=== PATIENT | male | born 1970 | race Caucasian/White ===

== ENCOUNTER 2024-07-24 21:19 | Inpatient (IN) ==
--- NOTE | 2024-07-24 21:48 | Emergency Department Note ---
Impression & Plan SOB (shortness of breath), Pneumonia, Flu-like symptoms, Leukocytosis, Lung mass ED Provider Note NAME: RHETT ENRIQUE AGE: 54 SEX: M : 1970 ARRIVES VIA: Walk-In INFORMANT: [Patient] ED PROVIDER(S): [Rhett Pak MD] CHIEF COMPLAINT: Short of breath HISTORY OF PRESENT ILLNESS: The patient is a 54-year-old male presents to the ER with around 2 weeks of symptoms. He has had a dry cough that now is a wet cough. He thought he was better for a short time but now seems to be getting worse. He has felt tightness across the chest. He has noticed increasing dyspnea. He has been trying some rdnr-[id number]-[id number] cold meds. He has tried Mucinex and Advil without relief. The patient does not think he has had a fever, no chills. He does smoke but has never been diagnosed with lung disease. He states that his daughter was just diagnosed with influenza. The patient has had some loose, diarrhea-like stools but he thinks it is from the Mucinex. PMHx/PSHx/Social Hx: See Below PHYSICAL EXAM: GENERAL: Patient is in no acute distress. HEENT: No acute trauma, normocephalic atraumatic, mucous membranes moist, no nasal congestion. NECK: No stridor, no adenopathy, no meningismus, trachea is midline. LUNGS: Wet cough noted, no respiratory distress, diminished breath sounds bilaterally with some scattered crackles and some scattered wheezing. HEART: Without murmurs gallops or rubs, regular rate and rhythm. ABDOMEN: Soft, nontender, no peritonitis. EXTREMITIES: No cyanosis, full range of motion of all the joints without pain or difficulty. NEUROLOGIC: Oriented x 3, no acute motor or sensory deficits, no focal weakness. SKIN: No jaundice, no diaphoresis. DIFFERENTIAL DIAGNOSIS: Bronchitis or pneumonia, influenza, COVID-19, CHF, viral illness, cardiac ischemia, among others. EMERGENCY DEPARTMENT PROCEDURES: MEDICAL DECISION MAKING: There is a significant leukocytosis at 19,000, this would be consistent with infection. A very mild anemia was seen. Platelet count was high at 631. No coagulopathy. No renal failure or significant electrolyte abnormality. No concerning liver enzyme elevation. ECG showed a normal sinus rhythm, no ischemia. Cardiac enzyme testing x 1 was not consistent with acute cardiac injury. Respiratory bio fire was negative. Chest x-ray shows a left upper lung mass/pneumonia. There was infiltrate in the right upper lung as well. Chest CT shows pneumonia as well as a potential lung malignancy. No PE. Patient was given a DuoNeb, he was given oral Zithromax and IV ceftriaxone. He was given IV Solu-Medrol and IV saline. He received albuterol via MDI. The patient presents with shortness of breath, flulike symptoms and chest tightness. He was found to have pneumonia as well as what appears to be a new lung mass. He has a significant leukocytosis. Given his findings and complaints, hospitalization, further pulmonary workup was felt warranted. I spoke with the patient and case management. The on-call hospitalist was consulted. Prior/Outside records/notes reviewed: None ECG per my interpretation: Indication was chest pain and dyspnea. The ECG shows a normal sinus rhythm with a rate of 88. There is no acute ST elevation, no PVCs. There is some baseline artifact. The QTc is 423. Continuous Cardiac Monitoring per my interpretation: An order was placed for continuous cardiac monitoring. The monitor shows a rate of 92 with normal sinus rhythm. Imaging/x-ray results per my interpretation: Chest x-ray shows a left upper lung mass/pneumonia. No pneumothorax. There was patchy infiltrate noted to the right upper lung as well. Chronic Medical/Social conditions affecting care: History of smoking Care/Management discussed with: Case management, the on-call hospitalist. Level of care consideration(s): After review of the information above and other included data: --I believe the patient requires escalation of care to admission DISPOSITION: Admission Past Med/Surg History Problem List (Updated 07/24/24 @ 23:49 by Rhett Pak MD) Lung mass (Acute) Leukocytosis (Acute) Flu-like symptoms (Acute) Pneumonia (Acute) SOB (shortness of breath) (Acute) Medical History Bronchitis Social History Smoking Status: Current every day smoker Preferred Language: [place] Feels Safe at Home: Yes Allergies Allergies Allergy/AdvReac Type Severity Reaction Status Date / Time Bactrim Allergy . Unverified 12/21/09 21:32 Sulfa (Sulfonamide Allergy Verified 12/21/09 21:32 Antibiotics) Home Meds Previous Rx's Medication Instructions Recorded OXYCODONE/ACETAMINOPHEN 5MG/325MG 1 tab PO Q6HR PRN ##20 12/21/09 (PERCOCET 5MG/325MG) Results & Data (ED) Vital Signs Vital Signs - 24 hr 07/24/24 21:22 07/24/24 21:30 07/24/24 21:33 Temperature 37.5 C Temperature Source Temporal Artery Scan Pulse Rate 100 H 92 H Pulse Rate [Right Finger] Respiratory Rate 20 Blood Pressure 128/72 Blood Pressure [Right Arm] Blood Pressure Mean 90 Blood Pressure Mean [Right Arm] Pulse Oximetry 97 99 Oxygen Delivery Method Room Air Room Air Oxygen Flow Rate Sepsis Recent Fever Within 48 Hours No Sepsis New/Unexplained Change in Mental Status No Sepsis Action Taken by Nursing No Action Required 07/24/24 22:26 07/24/24 23:10 Temperature Temperature Source Pulse Rate Pulse Rate [Right Finger] 79 Respiratory Rate 15 Blood Pressure Blood Pressure [Right Arm] 133/71 Blood Pressure Mean Blood Pressure Mean [Right Arm] 91 Pulse Oximetry 99 Oxygen Delivery Method Non-rebreather Room Air Oxygen Flow Rate 96 Sepsis Recent Fever Within 48 Hours Sepsis New/Unexplained Change in Mental Status Sepsis Action Taken by [place] Medications Current Medication List: was personally reviewed by me Laboratory Data Attestation: I reviewed the patient's lab results. 07/24/24 21:45 07/24/24 21:45 Lab Results 07/24/24 07/24/24 Range/Units 21:45 Unknown WBC 19.58 H (4.8-10.8) K/ul RBC 4.53 L (4.70-6.10) M/uL Hgb 13.4 L (14.0-18.0) g/dl Hct 39.3 L (42.0-52.0) % MCV 86.8 (80.0-100.0) fL MCH 29.6 (25.0-34.0) pg MCHC 34.1 (32.0-36.0) g/dL RDW Std Deviation 40.4 (36.4-46.3) fL RDW Coeff of Carin 12.8 (11.5-14.5) % Plt Count 631 H (130-400) K/uL MPV 9.4 (9.4-12.4) fL Immature Gran % (Auto) 0.8 % Neut % (Auto) 83.8 % Lymph % (Auto) 8.1 % [place] % (Auto) 6.0 % Eos % (Auto) 0.9 % Baso % (Auto) 0.4 % Neut # (Auto) 16.43 H (1.40-6.50) K/uL Lymph # (Auto) 1.58 (1.20-3.40) K/uL [place] # (Auto) 1.17 H (0.11-0.59) K/uL Eos # (Auto) 0.17 (0.00-0.50) K/uL Baso # (Auto) 0.07 (0.00-0.20) K/uL Immature Gran # (Auto) 0.16 (0.01-0.20) K/uL PT 10.9 (9.0-12.0) Seconds INR 1.0 (0.9-1.1) APTT 28 (21-31) Seconds PTT Ratio 1.0 Sodium 136 (136-145) mmol/L Potassium 3.5 (3.5-5.1) mmol/L Chloride 104 (98-107) mmol/L Carbon Dioxide 24 (21-32) mmol/L Anion Gap 8 (3-11) BUN 15 (6-23) mg/dl Creatinine 1.05 (0.6-1.4) mg/dl Est Cr Clr Drug Dosing 78.7 ml/min eGFR 84.88 BUN/Creatinine Ratio 14.3 (10-20) Glucose 117 H (70-99(Fasting)) mg/dl Calcium 8.8 (8.6-10.3) mg/dl Magnesium 1.8 (1.7-2.4) mg/dl Total Bilirubin 0.3 (0.2-1.0) mg/dl AST 31 (13-39) U/L ALT 33 (7-52) U/L Alkaline Phosphatase 91 (34-104) U/L Troponin I High Sens 7.0 (0-20) pg/ml Total Protein 7.3 (6.0-8.3) gm/dl Albumin 3.3 L (3.4-5.0) gm/dl Globulin 4.0 (2.5-4.0) gm/dl Albumin/Globulin Ratio 0.8 L (0.9-2) Adenovirus (PCR) Not Detected (NotDetected) B. pertussis DNA (PCR) Not Detected (NotDetected) B.parapertussis DNA PCR Not Detected (NotDetected) C. pneumoniae DNA (PCR) Not Detected (NotDetected) Coronavirus OC43 (PCR) Not Detected (NotDetected) Coronavirus HKU1 (PCR) Not Detected (NotDetected) Coronavirus 229E (PCR) Not Detected (NotDetected) SARS-CoV-2 (PCR) Not Detected (NotDetected) Coronavirus NL63 (PCR) Not Detected (NotDetected) Human Metapneumovir PCR Not Detected (NotDetected) Influenza Type A (PCR) Not Detected (NotDetected) Influenza Type B (PCR) Not Detected (NotDetected) M. pneumoniae (PCR) Not Detected (NotDetected) Parainfluenza 1 (PCR) Not Detected (NotDetected) Parainfluenza 2 (PCR) Not Detected (NotDetected) Parainfluenza 3 (PCR) Not Detected (NotDetected) Parainfluenza 4 (PCR) Not Detected (NotDetected) RSV (PCR) Not Detected (NotDetected) Entero/Rhino (PCR) Not Detected (NotDetected) Administered Medications Discontinued Medications Albuterol (Albut/Ipratrop 3mg/0.5mg Neb 3 Ml Vial) 3 ml NEB NOW STA; Protocol Stop: 07/24/24 21:45 Last Admin: 07/24/24 22:23 Dose: 3 ml Documented By: VIKI Albuterol (Albuterol Hfa 8 Gm Inhaler) 3 puffs INH NOW ONE Stop: 07/24/24 23:06 Last Admin: 07/24/24 23:34 Dose: 3 puffs Documented By: RAFAEL Azithromycin (Azithromycin 250 Mg Tab) 500 mg PO NOW ONE Stop: 07/24/24 22:21 Last Admin: 07/24/24 22:30 Dose: 500 mg Documented By: VIKI Ceftriaxone Sodium (Rocephin) 2,000 mg in 50 mls @ 100 mls/hr IV NOW STA Stop: 07/24/24 22:49 Last Infusion: 07/24/24 23:35 Dose: Infused Documented By: Admin: 07/24/24 22:30 Dose: 100 mls/hr Documented By: VIKI Sodium Chloride (Nss) 1,000 mls @ 999 mls/hr IV .Q1H1M ONE Stop: 07/24/24 23:20 Last Infusion: 07/24/24 23:35 Dose: Infused Documented By: Admin: 07/24/24 22:22 Dose: 999 mls/hr Documented By: CHARLEENW Ioversol (Optiray 320 125ml) 120 ml IV ONCE ONE Stop: 07/24/24 22:49 Last Admin: 07/24/24 22:49 Dose: 120 ml Documented By: CHRISSY Methylprednisolone (Methylprednisolone 125 Mg/2 Ml Vial) 80 mg IV NOW STA Stop: 07/24/24 21:45 Last Admin: 07/24/24 22:23 Dose: 80 mg Documented By: ASW Imaging Data Radiologist's Impression: Chest X-Ray 07/24/24 21:30 Exam(s): XR CXR 1 VIEW EXAM: XR Chest, 1 View CLINICAL HISTORY: Reason for exam: Dyspnea. TECHNIQUE: Frontal view of the chest. COMPARISON: Chest x-ray 07/09/2023 FINDINGS: Lungs: Left upper lobe mass measuring 8.4 cm. Heterogeneous opacities in the right upper lobe. Pleural space: No pleural effusion. No pneumothorax. Heart: Unremarkable. No cardiomegaly. IMPRESSION: 1. Left upper lobe mass measuring 8.4 cm. 2. Heterogeneous opacities in the right upper lobe. Electronically signed by: Gilmra Lee MD 07/24/24 23:21 PM Chest CTA 07/24/24 22:19 Exam(s): CTA CHEST EXAM: CT Angiography Chest With Intravenous Contrast CLINICAL HISTORY: Reason for exam: PE. TECHNIQUE: Axial computed tomographic angiography images of the chest with intravenous contrast. CTDI is 18 mGy and DLP is 618 mGy-cm. Automated exposure control was utilized for the study. A dose lowering technique was utilized adhering to the principles of ALARA. MIP reconstructed images were created and reviewed. COMPARISON: No relevant prior studies available. FINDINGS: Pulmonary arteries: No pulmonary embolism. Aorta: No acute findings. Normal caliber. No dissection. Lungs: Mass in the left upper lobe measuring 7.2 x 5.8 cm. Scattered groundglass opacities most pronounced in the upper lobes consistent with atypical infection. Pleural space: No pleural effusion. No pneumothorax. Heart: Unremarkable. Bones/joints: No acute fracture. Soft tissues: Unremarkable. Lymph nodes: Unremarkable. IMPRESSION: 1. No pulmonary embolism. 2. Mass in the left upper lobe measuring 7.2 x 5.8 cm. A few foci of gas along the superior margin. Concerning for centrally necrotic malignancy. 3. Scattered groundglass opacities most pronounced in the upper lobes consistent with atypical infection. Electronically signed by: Gilmar Lee MD 07/24/24 23:14 PM Discharge Plan Visit Data Chief Complaint: Shortness of Breath/Dyspnea Stated Complaint: COUGHING, SOB, CHEST PAIN, ED Provider: Rhett Pak Discharge Problem: SOB (shortness of breath), Pneumonia, Flu-like symptoms, Leukocytosis, Lung mass Patient Disposition: Admitted As Inpatient Condition: Fair Forms Stand Alone Forms: [employer] Prescriptions Prescriptions: No Action OXYCODONE/ACETAMINOPHEN 5MG/325MG (PERCOCET 5MG/325MG) tablet 1 tab PO Q6HR PRN Qty: 20 0RF Referrals Referrals: Albert Best MD [Primary Care Provider] - Discharge Problem: Pneumonia Qualifiers: Pneumonia type: due to unspecified organism Laterality: left Lung location: u pper lobe of lung Qualified Code(s): J18.9 - Pneumonia, unspecified organism Leukocytosis Qualifiers: Leukocytosis type: unspecified Qualified Code(s): D72.829 - Elevated white blood cell count, unspecified
[2024-07-24 22:11] LABS: Basophils # (auto) 0.07 K/uL (0.00-0.20); Basophils % (auto) 0.4 %; Eosinophils # (auto) 0.17 K/uL (0.00-0.50); Eosinophils % (auto) 0.9 %; Hematocrit (blood only) 39.3 % (42.0-52.0); Hemoglobin 13.4 g/dl (14.0-18.0); Immature Granulocytes # (auto) 0.16 K/uL (0.01-0.20); Immature Granulocytes % (auto) 0.8 %; Lymphocytes # (auto) 1.58 K/uL (1.20-3.40); Lymphocytes % (auto) 8.1 %; Mean Corpuscular Hemoglobin 29.6 pg (25.0-34.0); Mean Corpuscular Hgb Conc 34.1 g/dL (32.0-36.0); Mean Corpuscular Volume 86.8 fL (80.0-100.0); Mean Platelet Volume 9.4 fL (9.4-12.4); Monocytes # (auto) 1.17 K/uL (0.11-0.59); Neutrophils # (auto) 16.43 K/uL (1.40-6.50); Neutrophils % (auto) 83.8 %; Platelet Count 631 K/uL (130-400); RDW Coefficient of Variation 12.8 % (11.5-14.5); RDW Standard Deviation 40.4 fL (36.4-46.3); Red Blood Count 4.53 M/uL (4.70-6.10); White Blood Count 19.58 K/ul (4.8-10.8)
[2024-07-24] MEDS: SODIUM CHLORIDE 0.9% 1,000 ML IV ONE (22:22)
[2024-07-24] MEDS: ALBUT/IPRATROP 3MG/0.5MG NEB 3 ML VIAL NEB STA (22:23)
[2024-07-24] MEDS: methylPREDNISolone 125 MG/2 ML VIAL IV STA (22:23)
[2024-07-24 22:26] LABS: Albumin Globulin Ratio 0.8 (0.9-2); Albumin Level 3.3 gm/dl (3.4-5.0); BUN Creatinine Ratio 14.3 (10-20); Bilirubin,Total 0.3 mg/dl (0.2-1.0); Calcium 8.8 mg/dl (8.6-10.3); Creatinine Clr Calc Pharmacy 78.7 ml/min; Magnesium 1.8 mg/dl (1.7-2.4); Potassium 3.5 mmol/L (3.5-5.1); Total Protein 7.3 gm/dl (6.0-8.3)
[2024-07-24] MEDS: cefTRIAXone SODIUM 2,000 MG/50 ML BAG IV STA (22:30)
[2024-07-24] MEDS: AZITHROMYCIN 250 MG TAB PO ONE (22:30)
[2024-07-24 22:38] LABS: Partial Thromboplastin Time 28 Seconds (21-31); Prothrombin Time 10.9 Seconds (9.0-12.0)
[2024-07-24 22:42] LABS: Adenovirus PCR Not Detected (NotDetected); Bordetella parapertussis PCR Not Detected (NotDetected); Bordetella pertussis PCR Not Detected (NotDetected); Chlamydia pneumoniae PCR Not Detected (NotDetected); Coronavirus 229E PCR Not Detected (NotDetected); Coronavirus CoV-2 (COVID19)PCR Not Detected (NotDetected); Coronavirus HKU1 PCR Not Detected (NotDetected); Coronavirus NL63 PCR Not Detected (NotDetected); Coronavirus OC43PCR Not Detected (NotDetected); Human Metapneumovirus PCR Not Detected (NotDetected); Influenza A PCR Not Detected (NotDetected); Influenza B PCR Not Detected (NotDetected); Mycoplasma pneumoniae PCR Not Detected (NotDetected); Parainfluenza Virus 1 PCR Not Detected (NotDetected); Parainfluenza Virus 2 PCR Not Detected (NotDetected); Parainfluenza Virus 3 PCR Not Detected (NotDetected); Parainfluenza Virus 4 PCR Not Detected (NotDetected); Respiratory Syncytial VirusPCR Not Detected (NotDetected); Rhinovirus/Enterovirus PCR Not Detected (NotDetected)
[2024-07-24] MEDS: OPTIRAY 320 125ml IV ONE (22:49)
--- NOTE | 2024-07-24 23:15 | CT Scan Report ---
Exam(s): CTA CHEST EXAM: CT Angiography Chest With Intravenous Contrast CLINICAL HISTORY: Reason for exam: PE. TECHNIQUE: Axial computed tomographic angiography images of the chest with intravenous contrast. CTDI is 18 mGy and DLP is 618 mGy-cm. Automated exposure control was utilized for the study. A dose lowering technique was utilized adhering to the principles of ALARA. MIP reconstructed images were created and reviewed. COMPARISON: No relevant prior studies available. FINDINGS: Pulmonary arteries: No pulmonary embolism. Aorta: No acute findings. Normal caliber. No dissection. Lungs: Mass in the left upper lobe measuring 7.2 x 5.8 cm. Scattered groundglass opacities most pronounced in the upper lobes consistent with atypical infection. Pleural space: No pleural effusion. No pneumothorax. Heart: Unremarkable. Bones/joints: No acute fracture. Soft tissues: Unremarkable. Lymph nodes: Unremarkable. IMPRESSION: 1. No pulmonary embolism. 2. Mass in the left upper lobe measuring 7.2 x 5.8 cm. A few foci of gas along the superior margin. Concerning for centrally necrotic malignancy. 3. Scattered groundglass opacities most pronounced in the upper lobes consistent with atypical infection. Electronically signed by: Gilmar Lee MD 07/24/24 23:14 PM
--- NOTE | 2024-07-24 23:22 | XRay Report ---
Exam(s): XR CXR 1 VIEW EXAM: XR Chest, 1 View CLINICAL HISTORY: Reason for exam: Dyspnea. TECHNIQUE: Frontal view of the chest. COMPARISON: Chest x-ray 07/09/2023 FINDINGS: Lungs: Left upper lobe mass measuring 8.4 cm. Heterogeneous opacities in the right upper lobe. Pleural space: No pleural effusion. No pneumothorax. Heart: Unremarkable. No cardiomegaly. IMPRESSION: 1. Left upper lobe mass measuring 8.4 cm. 2. Heterogeneous opacities in the right upper lobe. Electronically signed by: Gilmar Lee MD 07/24/24 23:21 PM
[2024-07-24] MEDS: ALBUTEROL HFA 8 GM INHALER INH ONE (23:34)
--- NOTE | 2024-07-25 00:37 | History & Physical Report ---
Date of Service July 25, 2024 Assessment & Plan (1) Pneumonia: Plan: 54-year-old male with ongoing tobacco abuse presents with cough and shortness of breath going on since [place] time. Patient says he is coughing a lot and last few days is mostly in the bed. Sometimes wakes up with sweating. Denies any fevers. And was having chest tightness. And today was getting short of breath. Denies any body ache. Denies any weakness. No headache. No neck p ain. No back pain. No pain in the legs. No nausea. Appetite is okay. No abdominal pain. Normal bowel and bladder movements. Hemodynamics are okay. Pneumonia Upper lobes on the CAT scan Leukocytosis Ongoing tobacco abuse Feeling short of breath and coughing Empiric Rocephin and p.o. azithromycin Nebs [id number] and as needed Monitor the response Lung mass 7.2x 5.8 cm mass in left upper lobe possible malignant on the CAT scan Ongoing smoking Will consult pulmonary for further recommendations DVT prophylaxis SCDs for now Lovenox if no procedures planned Disposition Med/telemetry Full code History of Present Illness Chief Complaint: Shortness of breath and cough Primary Care Provider: Albert Best MD 54-year-old male with ongoing tobacco abuse presents with cough and shortness of breath going on since [place] time. Patient says he is coughing a lot and last few days is mostly in the bed. Sometimes wakes up with sweating. Denies any fevers. And was having chest tightness. And today was getting short of breath. Denies any body ache. Denies any weakness. No headache. No neck pain. No back pain. No pain in the legs. No nausea. Appetite is okay. No abdominal pain. Normal bowel and bladder movements. Hemodynamics are okay. Past medical history. As mentioned above. Past surgical history. Insert ureteral support. Social history. Smoking 1 pack in 2 to 3 days for last 20 years. Alcohol occasional. No drug use currently. Family history. No family history on file. Allergies Allergy/AdvReac Type Severity Reaction Status Date / Time Bactrim Allergy . Unverified 12/21/09 21:32 Sulfa (Sulfonamide Allergy Verified 12/21/09 21:32 Antibiotics) Home Medications Medication Instructions Recorded Confirmed Type OXYCODONE/ACETAMINOPHEN 5MG/325MG 1 tab PO Q6HR PRN ##20 12/21/09 Rx (PERCOCET 5MG/325MG) Past Med/Surg History Problem List (Updated 07/24/24 @ 23:49 by Josh Pak MD) Lung mass (Acute) Leukocytosis (Acute) Flu-like symptoms (Acute) Pneumonia (Acute) SOB (shortness of breath) (Acute) Medical History Bronchitis Social History Smoking Status: Current every day smoker Tobacco Type: Cigarettes Hx Alcohol Use: Yes Hx Substance Use: No Preferred Language: [place] Supervisor Brine Required: No Beliefs That Will Affect Care: None Current Living Situation: Spouse Feels Safe at Home: Yes Review of Systems Review of Systems: All systems reviewed & are unremarkable except as noted in HPI & below Physical Exam Physical Exam: General- Not in distress Head- atraumatic Eyes- PERRL. ENT- oropharynx clear Neck- supple, no JVD. Lungs- clear to auscultation no wheezing or crackles Heart- regular rate and rhythm; no murmur, no gallop. Abdomen- normal bowel sounds, soft, nontender, no distension Extremities- no pretibial edema, no erythema seen Neuro- alert, oriented PERRL, no facial palsy; no dysarthria; moves extremities Results & Data Results & Data Vital Signs (Past 12 Hours) Vital Signs Temp Pulse Pulse Resp BP BP Pulse Ox 07/24/24 23:10 07/24/24 22:26 79 15 133/71 99 07/24/24 21:33 92 H 07/24/24 21:30 99 07/24/24 21:22 37.5 C 100 H 20 128/72 97 O2 Del Method O2 Flow Rate 07/24/24 23:10 Room Air 96 07/24/24 22:26 Non-rebreather 07/24/24 21:33 07/24/24 21:30 Room Air 07/24/24 21:22 Room Air Diagnostic Findings Laboratory Results WBC 19.58 K/ul (4.8-10.8) H 07/24/24 21:45 RBC 4.53 M/uL (4.70-6.10) L 07/24/24 21:45 Hgb 13.4 g/dl (14.0-18.0) L 07/24/24 21:45 Hct 39.3 % (42.0-52.0) L 07/24/24 21:45 MCV 86.8 fL (80.0-100.0) 07/24/24 21:45 MCH 29.6 pg (25.0-34.0) 07/24/24 21:45 MCHC 34.1 g/dL (32.0-36.0) 07/24/24 21:45 RDW Std Deviation 40.4 fL (36.4-46.3) 07/24/24 21:45 RDW Coeff of Carin 12.8 % (11.5-14.5) 07/24/24 21:45 Plt Count 631 K/uL (130-400) H 07/24/24 21:45 MPV 9.4 fL (9.4-12.4) 07/24/24 21:45 Immature Gran % (Auto) 0.8 % 07/24/24 21:45 Neut % (Auto) 83.8 % 07/24/24 21:45 Lymph % (Auto) 8.1 % 07/24/24 21:45 [place] % (Auto) 6.0 % 07/24/24 21:45 Eos % (Auto) 0.9 % 07/24/24 21:45 Baso % (Auto) 0.4 % 07/24/24 21:45 Neut # (Auto) 16.43 K/uL (1.40-6.50) H 07/24/24 21:45 Lymph # (Auto) 1.58 K/uL (1.20-3.40) 07/24/24 21:45 [place] # (Auto) 1.17 K/uL (0.11-0.59) H 07/24/24 21:45 Eos # (Auto) 0.17 K/uL (0.00-0.50) 07/24/24 21:45 Baso # (Auto) 0.07 K/uL (0.00-0.20) 07/24/24 21:45 Immature Gran # (Auto) 0.16 K/uL (0.01-0.20) 07/24/24 21:45 PT 10.9 Seconds (9.0-12.0) 07/24/24 21:45 INR 1.0 (0.9-1.1) 07/24/24 21:45 APTT 28 Seconds (21-31) 07/24/24 21:45 PTT Ratio 1.0 07/24/24 21:45 Sodium 136 mmol/L (136-145) 07/24/24 21:45 Potassium 3.5 mmol/L (3.5-5.1) 07/24/24 21:45 Chloride 104 mmol/L (98-107) 07/24/24 21:45 Carbon Dioxide 24 mmol/L (21-32) 07/24/24 21:45 Anion Gap 8 (3-11) 07/24/24 21:45 BUN 15 mg/dl (6-23) 07/24/24 21:45 Creatinine 1.05 mg/dl (0.6-1.4) 07/24/24 21:45 Est Cr Clr Drug Dosing 78.7 ml/min 07/24/24 21:45 eGFR 84.88 07/24/24 21:45 BUN/Creatinine Ratio 14.3 (10-20) 07/24/24 21:45 Glucose 117 mg/dl (70-99(Fasting)) H 07/24/24 21:45 Calcium 8.8 mg/dl (8.6-10.3) 07/24/24 21:45 Magnesium 1.8 mg/dl (1.7-2.4) 07/24/24 21:45 Total Bilirubin 0.3 mg/dl (0.2-1.0) 07/24/24 21:45 AST 31 U/L (13-39) 07/24/24 21:45 ALT 33 U/L (7-52) 07/24/24 21:45 Alkaline Phosphatase 91 U/L (34-104) 07/24/24 21:45 Troponin I High Sens 7.0 pg/ml (0-20) 07/24/24 21:45 Total Protein 7.3 gm/dl (6.0-8.3) 07/24/24 21:45 Albumin 3.3 gm/dl (3.4-5.0) L 07/24/24 21:45 Globulin 4.0 gm/dl (2.5-4.0) 07/24/24 21:45 Albumin/Globulin Ratio 0.8 (0.9-2) L 07/24/24 21:45 Adenovirus (PCR) Not Detected (NotDetected) 07/24/24 Unknown B. pertussis DNA (PCR) Not Detected (NotDetected) 07/24/24 Unknown B.parapertussis DNA PCR Not Detected (NotDetected) 07/24/24 Unknown C. pneumoniae DNA (PCR) Not Detected (NotDetected) 07/24/24 Unknown Coronavirus OC43 (PCR) Not Detected (NotDetected) 07/24/24 Unknown Coronavirus HKU1 (PCR) Not Detected (NotDetected) 07/24/24 Unknown Coronavirus 229E (PCR) Not Detected (NotDetected) 07/24/24 Unknown SARS-CoV-2 (PCR) Not Detected (NotDetected) 07/24/24 Unknown Coronavirus NL63 (PCR) Not Detected (NotDetected) 07/24/24 Unknown Human Metapneumovir PCR Not Detected (NotDetected) 07/24/24 Unknown Influenza Type A (PCR) Not Detected (NotDetected) 07/24/24 Unknown Influenza Type B (PCR) Not Detected (NotDetected) 07/24/24 Unknown M. pneumoniae (PCR) Not Detected (NotDetected) 07/24/24 Unknown Parainfluenza 1 (PCR) Not Detected (NotDetected) 07/24/24 Unknown Parainfluenza 2 (PCR) Not Detected (NotDetected) 07/24/24 Unknown Parainfluenza 3 (PCR) Not Detected (NotDetected) 07/24/24 Unknown Parainfluenza 4 (PCR) Not Detected (NotDetected) 07/24/24 Unknown RSV (PCR) Not Detected (NotDetected) 07/24/24 Unknown Entero/Rhino (PCR) Not Detected (NotDetected) 07/24/24 Unknown Impressions Chest X-Ray 07/24/24 21:30 Exam(s): XR CXR 1 VIEW EXAM: XR Chest, 1 View CLINICAL HISTORY: Reason for exam: Dyspnea. TECHNIQUE: Frontal view of the chest. COMPARISON: Chest x-ray 07/09/2023 FINDINGS: Lungs: Left upper lobe mass measuring 8.4 cm. Heterogeneous opacities in the right upper lobe. Pleural space: No pleural effusion. No pneumothorax. Heart: Unremarkable. No cardiomegaly. IMPRESSION: 1. Left upper lobe mass measuring 8.4 cm. 2. Heterogeneous opacities in the right upper lobe. Electronically signed by: Gilmar Lee MD 07/24/24 23:21 PM Chest CTA 07/24/24 22:19 Exam(s): CTA CHEST EXAM: CT Angiography Chest With Intravenous Contrast CLINICAL HISTORY: Reason for exam: PE. TECHNIQUE: Axial computed tomographic angiography images of the chest with intravenous contrast. CTDI is 18 mGy and DLP is 618 mGy-cm. Automated exposure control was utilized for the study. A dose lowering technique was utilized adhering to the principles of ALARA. MIP reconstructed images were created and reviewed. COMPARISON: No relevant prior studies available. FINDINGS: Pulmonary arteries: No pulmonary embolism. Aorta: No acute findings. Normal caliber. No dissection. Lungs: Mass in the left upper lobe measuring 7.2 x 5.8 cm. Scattered groundglass opacities most pronounced in the upper lobes consistent with atypical infection. Pleural space: No pleural effusion. No pneumothorax. Heart: Unremarkable. Bones/joints: No acute fracture. Soft tissues: Unremarkable. Lymph nodes: Unremarkable. IMPRESSION: 1. No pulmonary embolism. 2. Mass in the left upper lobe measuring 7.2 x 5.8 cm. A few foci of gas along the superior margin. Concerning for centrally necrotic malignancy. 3. Scattered groundglass opacities most pronounced in the upper lobes consistent with atypical infection. Electronically signed by: Gilmar Lee MD 07/24/24 23:14 PM ECG Additional Comments: ECG. Normal sinus rhythm with rate of 88. No acute ST changes seen. QTc 423. Code Status & VTE Plan VTE Prophylaxis Plan VTE Prophylaxis will be ordered: Yes (1) Pneumonia Laterality: left Lung location: upper lobe of lung Pneumonia type: due to unspecified organism Qualified Code(s): J18.9 - Pneumonia, unspecified organism
[2024-07-25] MEDS ORDERED: POLYETHYLENE (MIRALAX) 17 GM PACK PO PRN (01:39)
[2024-07-25] MEDS ORDERED: NITROGLYCERIN SL 0.4 MG/TAB TAB SL PRN (01:39)
[2024-07-25 06:31] LABS: BUN Creatinine Ratio 15.3 (10-20); Calcium 8.9 mg/dl (8.6-10.3); Creatinine Clr Calc Pharmacy 90.7 ml/min; Potassium 3.7 mmol/L (3.5-5.1)
[2024-07-25 06:32] LABS: Hematocrit (blood only) 37.5 % (42.0-52.0); Hemoglobin 12.6 g/dl (14.0-18.0); Mean Corpuscular Hemoglobin 29.6 pg (25.0-34.0); Mean Corpuscular Hgb Conc 33.6 g/dL (32.0-36.0); Mean Corpuscular Volume 88.2 fL (80.0-100.0); Mean Platelet Volume 9.7 fL (9.4-12.4); Platelet Count 640 K/uL (130-400); RDW Coefficient of Variation 12.9 % (11.5-14.5); RDW Standard Deviation 41.4 fL (36.4-46.3); Red Blood Count 4.25 M/uL (4.70-6.10); White Blood Count 21.44 K/ul (4.8-10.8)
[2024-07-25 06:38] LABS: Troponin I High Sensitivity 3.7 pg/ml (0-20)
[2024-07-25 07:07] LABS: Basophils # (auto) 0.03 K/uL (0.00-0.20); Basophils % (auto) 0.1 %; Immature Granulocytes # (auto) 0.27 K/uL (0.01-0.20); Immature Granulocytes % (auto) 1.3 %; Lymphocytes # (auto) 0.61 K/uL (1.20-3.40); Lymphocytes % (auto) 2.8 %; Monocytes % (auto) 1.4 %; Neutrophils # (auto) 20.23 K/uL (1.40-6.50); Neutrophils % (auto) 94.4 %
[2024-07-25] MEDS: ALBUT/IPRATROP 3MG/0.5MG NEB 3 ML VIAL NEB SCH (07:23)
[2024-07-25] MEDS: guaiFENesin/CODEINE 100MG/10MG 5ML UDC PO PRN (09:27)
--- NOTE | 2024-07-25 10:24 | Communication Note ---
Date of Service: July 25, 2024 Patient was seen and examined, reviewed the CT of the chest myself, he does seem to have a cavitary lesion on the left upper lobe with some necrotic area with air, suspicious for necrotic malignancy, there are scattered groundglass opacities as well probably due to atypical infection. He is not in any respiratory distress, was afebrile, he had leukocytosis of 19,000, complains of significant cough. Continue with current empirical antibiotic treatment, awaiting to be seen by pulmonary.
--- NOTE | 2024-07-25 11:46 | Pulmonary Consultation ---
Date of Consultation July 25, 2024 Assessment & Plan (1) Lung mass: (2) Multifocal pneumonia: (3) SOB (shortness of breath): Plan CT chest 07/24/2024 personally reviewed: Diffuse groundglass opacities appreciated bilaterally upper and lower lobes Left upper lobe well-circumscribed 7.2 cm x 5.8 cm mass with central necrosis Left hilar lymphadenopathy -- Left upper lobe mass 7.2 cm x 5.8 cm with cavitary component Chest x-ray from 07/09/2023 did not show any mass -- Abnormal chest CT Patchy groundglass opacities appreciated bilaterally Respiratory BioFire negative for everything on 07/24/2024 Procalcitonin 0.68 --Active smoker Approximately 89-jlug-iwks smoking history Currently smoking half a pack a day Plan: Continue with antibiotics The growth of the mass was significant and almost 13 months. The possibility of it being infection is still there but malignancy needs to be ruled out especially given the smoking history Follow-up nasal MRSA, if positive then would recommend vancomycin to be added to the regimen Patient having significant bouts of coughing which is making his chest discomfort He is currently on Mucinex having codeine. I will change it to Hycodan For navigational bronchoscopy on 07/28/2024 All questions inquiries of the patient and patient's were answered in depth Case was discussed with RN as well as primary team at bedside Please note the above document was generated using voice recognition software. It may contain grammatical, syntax or spelling errors.Any formal questions or concerns about the content, text or information contained within the body of this dictation should be directly addressed to the provider for clarification. History of Present Illness Attending Physician: Dano Conner MD History of Present Illness 54-year-old male comes to the hospital with shortness of breath and cough Past medical history: Active smoker Pulmonary consulted for abnormal chest CT At the time of examination patient's was in the room He stated that he has been having issues with coughing since approximately . He does not follow-up with a physician and just procrastinated it to a degree that he was coughing relentlessly and ended up in the hospital Cough is usually dry. Does not bring any phlegm up Denies any difficulty swallowing. No recent aspiration like episode. Patient did have some left-sided chest pain 2 days prior to [place] which lasted for a day or 2 and then went away. Does complain of chest discomfort when he coughs a lot. Complains of chest/rib pain on the right side. No dysuria No diarrhea No recent travel history No personal history of tuberculosis No known exposure to TB Tmax 39.2 Social history: Approximately 60-muih-vqid smoking history, currently smoking half a pack a day. Works in a [employer] with exposure to chemicals Has a dog at home. No history of lung cancer in the family Allergies Allergy/AdvReac Type Severity Reaction Status Date / Time Bactrim Allergy . 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 Beliefs That Will Affect Care: None Current Living Situation: Spouse Feels Safe at Home: Yes Review of Systems 2 Review of Systems: All systems reviewed & are unremarkable except as noted in HPI & below Physical Exam 2 Physical Exam: Constitutional: No acute distress HEENT: EOMI, PERRLA Respiratory system: Decreased air entry bilaterally, no wheeze, rhonchi, mild crackles bilaterally CVS: S1-S2 positive, no murmurs or gallops, tachycardia Abdomen: Soft, nontender, nondistended, positive bowel sounds x4 Extremities: +2 pulses bilaterally radialis/ dorsalis pedis, no cyanosis, no edema Neuro: Awake alert oriented x3 Psych: Normal mood and affect G/U: No Avery Skin: no rashes, warm and dry Lymphatic: no cervical or axillary lymphadenopathy Results & Data Results & Data Vital Signs (Past 12 Hours) Vital Signs Temp Pulse Pulse Resp BP BP Pulse Ox 07/25/24 11:18 36.8 C 94 H 18 152/76 H 94 07/25/24 11:09 104 H 18 93 07/25/24 08:15 07/25/24 07:46 36.5 C 85 16 126/72 94 07/25/24 07:23 99 H 18 96 07/25/24 07:04 89 07/25/24 01:44 07/25/24 01:44 36.7 C 83 20 137/73 95 07/25/24 01:39 36.7 C 83 20 137/73 95 07/25/24 01:37 86 07/25/24 01:29 79 17 117/77 95 O2 Del Method 07/25/24 11:18 Room Air 07/25/24 11:09 Room Air 07/25/24 08:15 Room Air 07/25/24 07:46 Room Air 07/25/24 07:23 Room Air 07/25/24 07:04 07/25/24 01:44 Room Air 07/25/24 01:44 Room Air 07/25/24 01:39 Room Air 07/25/24 01:37 07/25/24 01:29 Room Air Laboratory Results 07/25/24 05:16 07/25/24 05:16 PG Care Time/CCT Total # of Minutes Spent Total Time Spent with Patient: Total time spent is greater than 50% in coordination of care (as documented) at patient's floor/unit and/or counseling patient: Coding Level of Care Code 85480 INT INP/OBS CARE 3/75MIN Diagnoses Lung mass R91.8 Multifocal pneumonia J18.9 SOB (shortness of breath) R06.02
[2024-07-25] MEDS: ACETAMINOPHEN 325 MG TAB PO PRN (13:39)
[2024-07-25] MEDS: HYDROcodone/HOMATROPINE SYRUP 5MG/1.5MG 5ML UDP PO PRN (14:12)
[2024-07-25] MEDS: AZITHROMYCIN 250 MG TAB PO SCH (20:10)
[2024-07-25] MEDS: cefTRIAXone SODIUM 2,000 MG/50 ML BAG IV SCH (21:46)
[2024-07-26 06:33] LABS: Basophils # (auto) 0.04 K/uL (0.00-0.20); Basophils % (auto) 0.2 %; Eosinophils # (auto) 0.07 K/uL (0.00-0.50); Eosinophils % (auto) 0.3 %; Hemoglobin 12.4 g/dl (14.0-18.0); Immature Granulocytes # (auto) 0.15 K/uL (0.01-0.20); Immature Granulocytes % (auto) 0.7 %; Lymphocytes # (auto) 1.61 K/uL (1.20-3.40); Mean Corpuscular Hemoglobin 29.7 pg (25.0-34.0); Mean Corpuscular Hgb Conc 34.4 g/dL (32.0-36.0); Mean Corpuscular Volume 86.1 fL (80.0-100.0); Mean Platelet Volume 9.4 fL (9.4-12.4); Monocytes # (auto) 1.46 K/uL (0.11-0.59); Monocytes % (auto) 7.3 %; Neutrophils # (auto) 16.75 K/uL (1.40-6.50); Neutrophils % (auto) 83.5 %; Platelet Count 653 K/uL (130-400); RDW Coefficient of Variation 13.1 % (11.5-14.5); RDW Standard Deviation 40.9 fL (36.4-46.3); Red Blood Count 4.18 M/uL (4.70-6.10); White Blood Count 20.08 K/ul (4.8-10.8)
--- NOTE | 2024-07-26 08:31 | Hospitalist Progress Note ---
Date of Service July 26, 2024 Assessment & Plan (1) Pneumonia: Plan: This appears to be mostly atypical, his procalcitonin on admission was 0.68 which is just slightly elevated, he has leukocytosis of 20,000, no hypoxemia, viral panel was negative, QuantiFERON is pending at this time, plan for bronchoscopy and biopsy on 07/28/2024. Continue with empirical antibiotic with Continue with the coughs and azithromycin, continue with cough suppressants. (2) Lung mass: Plan: Left upper lobe, cavitary in appearance, it could be infectious with catheterization in the middle or necrotic malignancy or TB. TB workup is pending, patient will undergo bronchoscopy on 07/28/2024. Patient denied having any travel outside [place], he has not been exposed with anyone recently with known history of TB. Plan Continue current treatment, with empirical antibiotic, follow with the results of TB workup, and bronchoscopy on Friday. Admission and Anticipated Discharge Date Admission Date: July 25, 2024 Subjective Patient is a 54-year-old gentleman with nicotine dependence who was admitted to the hospital because of shortness of breath and cough, he does not have any prior medical condition although he has not been to a doctor for several years. He was found to have scattered predominantly right upper lobe groundglass changes along with leukocytosis of 20,000 and respiratory symptoms but not hypoxemia, patient was treated with IV antibiotic, also CT of the chest showed a left upper lobe cavitary lesion which was read and interpreted as possible new malignancy with necrotic center. Patient was seen by pulmonary and plan for bronchoscopy and biopsy on 07/28/2024. He was seen and examined, he feels better today, his leukocytosis is somewhat improved, continue with current treatment and follow with the plan per pulmonary Physical Exam Physical Exam: VITALS: Reviewed. WEIGHT/BMI reviewed. GEN: Healthy appearing, well-developed, NAD. CV: RRR, no m/r/g. LUNGS: Diminished breath sounds on the left side but overall no significant change from yesterday ABD: Soft, NT/ND, NBS, no masses or organomegaly. EXT: No clubbing, cyanosis, or edema. NEURO: Ambulating with no limitations. Normal muscle strength and tone. No focal deficits. Results & Data Results & Data Vital Signs (Past 12 Hours) Vital Signs Temp Pulse Pulse Resp BP BP Pulse Ox 07/26/24 07:39 91 H 18 89 L 07/26/24 07:19 36.8 C 87 15 125/72 92 07/26/24 07:04 80 07/26/24 02:55 36.9 C 75 18 108/62 90 07/25/24 23:42 36.7 C 07/25/24 22:44 92 07/25/24 22:35 38.8 C H 92 H 18 126/65 87 L 07/25/24 22:14 07/25/24 21:56 91 H O2 Del Method 07/26/24 07:39 Room Air 07/26/24 07:19 Room Air 07/26/24 07:04 07/26/24 02:55 Room Air 07/25/24 23:42 07/25/24 22:44 Room Air 07/25/24 22:35 Room Air 07/25/24 22:14 Room Air 07/25/24 21:56 Laboratory Results Laboratory Results - last 24 hr 07/24/24 07/25/24 07/25/24 21:45 10:50 17:00 WBC RBC Hgb Hct MCV MCH MCHC RDW Std Deviation RDW Coeff of Carin Plt Count MPV Immature Gran % (Auto) Neut % (Auto) Lymph % (Auto) Labette % (Auto) Eos % (Auto) Baso % (Auto) Neut # (Auto) Lymph # (Auto) Labette # (Auto) Eos # (Auto) Baso # (Auto) Immature Gran # (Auto) Troponin I High Sens 6.8 Procalcitonin 0.68 H Nasal Screen MRSA (PCR) TB Test (QFT) Gold Plus Pending TB Test (QFT) Nil Pending TB Test Mitogen - Nil Pending TB Test Ag - Nil 1 Pending TB Test Ag - Nil 2 Pending 07/25/24 07/25/24 07/26/24 17:05 Unknown 06:00 WBC 20.08 H RBC 4.18 L Hgb 12.4 L Hct 36.0 L MCV 86.1 MCH 29.7 MCHC 34.4 RDW Std Deviation 40.9 RDW Coeff of Carin 13.1 Plt Count 653 H MPV 9.4 Immature Gran % (Auto) 0.7 Neut % (Auto) 83.5 Lymph % (Auto) 8.0 Labette % (Auto) 7.3 Eos % (Auto) 0.3 Baso % (Auto) 0.2 Neut # (Auto) 16.75 H Lymph # (Auto) 1.61 Labette # (Auto) 1.46 H Eos # (Auto) 0.07 Baso # (Auto) 0.04 Immature Gran # (Auto) 0.15 Troponin I High Sens 9.7 Procalcitonin Nasal Screen MRSA (PCR) Negative TB Test (QFT) Gold Plus TB Test (QFT) Nil TB Test Mitogen - Nil TB Test Ag - Nil 1 TB Test Ag - Nil 2 Medications Administered Current Inpatient Medications Acetaminophen (Acetaminophen 325 Mg Tab) 650 mg PO Q6H PRN PRN Reason: Pain or Fever Stop: 08/24/24 01:38 Last Admin: 07/25/24 22:40 Dose: 650 mg Albuterol (Albut/Ipratrop 3mg/0.5mg Neb 3 Ml Vial) 3 ml NEB QIDR ELLIOT; Protocol Stop: 08/24/24 06:59 Last Admin: 07/26/24 07:37 Dose: 3 ml Albuterol (Albut/Ipratrop 3mg/0.5mg Neb 3 Ml Vial) 3 ml NEB Q4H PRN; Protocol PRN Reason: Shortness Of Breath Or Wheezing Stop: 08/24/24 01:38 Azithromycin (Azithromycin 250 Mg Tab) 250 mg PO [facility] Stop: 07/29/24 09:59 Last Admin: 07/25/24 20:10 Dose: 250 mg Hydrocodone Bit/Homatropine Methylb (Hydrocodone/Homatropine Syrup 5mg/1.5mg 5ml Udp) 5 ml PO Q4 PRN PRN Reason: Cough Stop: 08/08/24 14:05 Last Admin: 07/26/24 06:06 Dose: 5 ml Ceftriaxone Sodium (Rocephin) 2,000 mg in 50 mls @ 100 mls/hr IV Q24H ELLIOT Stop: 07/30/24 21:59 Last Infusion: 07/25/24 22:44 Dose: Infused Nitroglycerin (Nitroglycerin Sl 0.4 Mg/Tab Tab) 0.4 mg SL Q5M PRN PRN Reason: Chest Pain Stop: 08/24/24 01:38 Polyethylene Glycol (Polyethylene (Miralax) 17 Gm Pack) 17 gm PO DAILY PRN PRN Reason: Constipation Stop: 08/24/24 01:38 (1) Pneumonia Laterality: left Lung location: upper lobe of lung Pneumonia type: due to unspecified organism Qualified Code(s): J18.9 - Pneumonia, unspecified organism
--- NOTE | 2024-07-26 08:40 | Pulmonology Progress Note ---
Date of Service July 26, 2024 Assessment & Plan (1) Lung mass: (2) Multifocal pneumonia: (3) SOB (shortness of breath): Plan CT chest 07/24/2024 personally reviewed: Diffuse groundglass opacities appreciated bilaterally upper and lower lobes Left upper lobe well-circumscribed 7.2 cm x 5.8 cm mass with central necrosis Left hilar lymphadenopathy -- Left upper lobe mass 7.2 cm x 5.8 cm with cavitary component Chest x-ray from 07/09/2023 did not show any mass No night sweats No personal history of tuberculosis, no recent travel history outside of [place], no known exposure to somebody with tuberculosis Goal QuantiFERON has been ordered Follow sputum culture -- Abnormal chest CT Patchy groundglass opacities appreciated bilaterally Respiratory BioFire negative for everything on 07/24/2024 Procalcitonin 0.68 Nasal MRSA negative --Active smoker Approximately 36-lloo-rpsf smoking history Currently smoking half a pack a day Plan: Continue with antibiotics The growth of the mass was significant in almost 13 months. The possibility of it being infection is still there but malignancy needs to be ruled out especially given the smoking history Continue with Hycodan as needed For navigational bronchoscopy on 07/28/2024 Case discussed with RN at bedside Please note the above document was generated using voice recognition software. It may contain grammatical, syntax or spelling errors.Any formal questions or concerns about the content, text or information contained within the body of this dictation should be directly addressed to the provider for clarification. Admission and Anticipated Discharge Date Admission Date: July 25, 2024 Subjective Patient seen and examined at bedside. No acute distress, no adverse events overnight He was saturating 90-91 on room air. He has been getting cough syrup with codeine and that has suppressed his cough significantly. He said he slept well for the first time on for a long time Not bringing up any phlegm, no hemoptysis Denies any chest pain. Review of Systems 2 Review of Systems: All systems reviewed & are unremarkable except as noted in Subjective Physical Exam 2 Physical Exam: Constitutional: No acute distress HEENT: EOMI, PERRLA Respiratory system: Decreased air entry bilaterally, no wheeze, positive rhonchi, positive crackles bilateral lower lobes CVS: S1-S2 positive, no murmurs or gallops, tachycardia Abdomen: Soft, nontender, nondistended, positive bowel sounds x4 Extremities: +2 pulses bilaterally radialis/ dorsalis pedis, no cyanosis, no edema Neuro: Awake alert oriented x3 Psych: Normal mood and affect G/U: No Avery Skin: no rashes, warm and dry Lymphatic: no cervical or axillary lymphadenopathy Results & Data Results & Data Vital Signs (Past 12 Hours) Vital Signs Temp Pulse Pulse Resp BP BP Pulse Ox 07/26/24 08:25 07/26/24 07:39 91 H 18 89 L 07/26/24 07:19 36.8 C 87 15 125/72 92 07/26/24 07:04 80 07/26/24 02:55 36.9 C 75 18 108/62 90 07/25/24 23:42 36.7 C 07/25/24 22:44 92 07/25/24 22:35 38.8 C H 92 H 18 126/65 87 L 07/25/24 22:14 07/25/24 21:56 91 H O2 Del Method 07/26/24 08:25 Room Air 07/26/24 07:39 Room Air 07/26/24 07:19 Room Air 07/26/24 07:04 07/26/24 02:55 Room Air 07/25/24 23:42 07/25/24 22:44 Room Air 07/25/24 22:35 Room Air 07/25/24 22:14 Room Air 07/25/24 21:56 Laboratory Results 07/26/24 06:00 07/25/24 05:16 PG Care Time/CCT Total # of Minutes Spent Total Time Spent with Patient: Total time spent is greater than 50% in coordination of care (as documented) at patient's floor/unit and/or counseling patient: Coding Level of Care Code 21807 SUB INP/OBS CARE 3/50MIN Diagnoses Lung mass R91.8 Multifocal pneumonia J18.9 SOB (shortness of breath) R06.02
--- NOTE | 2024-07-26 16:34 | Electrocardiogram Report ---
Test Reason : Blood Pressure : */* mmHG Vent. Rate : 88 BPM Atrial Rate : 88 BPM P-R Int : 138 ms QRS Dur : 88 ms QT Int : 350 ms P-R-T Axes : 55 42 57 degrees QTcB Int : 423 ms Normal sinus rhythm Normal ECG When compared with ECG of 09-Jul-2023 16:52, T wave inversion no longer evident in Inferior leads Confirmed by Albert Roman ([id number]) on 07/26/2024 4:33:38 PM Referred By: REFERRED SELF Confirmed By: Albert Roman
[2024-07-27 06:38] LABS: Basophils # (auto) 0.03 K/uL (0.00-0.20); Basophils % (auto) 0.2 %; Eosinophils # (auto) 0.05 K/uL (0.00-0.50); Eosinophils % (auto) 0.3 %; Hematocrit (blood only) 34.5 % (42.0-52.0); Hemoglobin 12.2 g/dl (14.0-18.0); Immature Granulocytes # (auto) 0.16 K/uL (0.01-0.20); Immature Granulocytes % (auto) 0.8 %; Lymphocytes # (auto) 1.18 K/uL (1.20-3.40); Lymphocytes % (auto) 6.2 %; Mean Corpuscular Hemoglobin 30.4 pg (25.0-34.0); Mean Corpuscular Hgb Conc 35.4 g/dL (32.0-36.0); Mean Platelet Volume 9.6 fL (9.4-12.4); Monocytes # (auto) 1.35 K/uL (0.11-0.59); Monocytes % (auto) 7.1 %; Neutrophils # (auto) 16.14 K/uL (1.40-6.50); Neutrophils % (auto) 85.4 %; Platelet Count 607 K/uL (130-400); RDW Coefficient of Variation 12.9 % (11.5-14.5); RDW Standard Deviation 40.8 fL (36.4-46.3); Red Blood Count 4.01 M/uL (4.70-6.10); White Blood Count 18.91 K/ul (4.8-10.8)
--- NOTE | 2024-07-27 06:39 | Electrocardiogram Report ---
Test Reason : Blood Pressure : */* mmHG Vent. Rate : 90 BPM Atrial Rate : 90 BPM P-R Int : 136 ms QRS Dur : 90 ms QT Int : 382 ms P-R-T Axes : 60 53 37 degrees QTcB Int : 467 ms Normal sinus rhythm Normal ECG When compared with ECG of 24-Jul-2024 21:29, (unconfirmed) No significant change was found Confirmed by Albert Roman ([id number] on 07/27/2024 6:38:25 AM Referred By: REFERRED SELF Confirmed By: Albert Roman
--- NOTE | 2024-07-27 08:07 | XRay Report ---
EXAM: XR chest 1V portable CLINICAL HISTORY: f/u tgb/jtf TECHNIQUE: An X-ray image of the chest is obtained in AP projection. COMPARISON: [id number]. CR /[id number].5.1.2 CT./OBX.5.1.2/OBX.5.1 FINDINGS: Unchanged left lung upper and middle zones large opacity/mass, laterally abutting the pleural margin. Interval worsening of the scattered bilateral lung opacities and infiltrates. No evident pleural effusion. Heart size and shape are normal. No mediastinal widening or masses. No hilar or mediastinal lymphadenopathy. The bony thorax appears intact without fractures or deformities. Soft tissues overlying the chest wall are unremarkable. IMPRESSION: 1. Unchanged left lung upper and middle zones large opacity/mass. 2. Interval worsening of the scattered bilateral lung opacities and infiltrates. Electronically signed by Leeann Ziegler 07-27-2024 08:07 AM
--- NOTE | 2024-07-27 08:30 | Electrocardiogram Report ---
Test Reason : Blood Pressure : */* mmHG Vent. Rate : 101 BPM Atrial Rate : 101 BPM P-R Int : 136 ms QRS Dur : 90 ms QT Int : 356 ms P-R-T Axes : 58 41 16 degrees QTcB Int : 461 ms Sinus tachycardia with occasional Premature ventricular complexes Otherwise normal ECG When compared with ECG of 26-Jul-2024 05:55, Premature ventricular complexes are now Present Confirmed by Jeovanny Stanford ([id number] on 07/27/2024 8:30:23 AM Referred By: REFERRED SELF Confirmed By: Jeovanny Stanford
--- NOTE | 2024-07-27 08:57 | Pulmonology Progress Note ---
Date of Service July 27, 2024 Assessment & Plan (1) Lung mass: (2) Multifocal pneumonia: (3) SOB (shortness of breath): (4) Acute respiratory failure with hypoxia: Plan CT chest 07/24/2024 personally reviewed: Diffuse groundglass opacities appreciated bilaterally upper and lower lobes Left upper lobe well-circumscribed 7.2 cm x 5.8 cm mass with central necrosis Left hilar lymphadenopathy -- Left upper lobe mass 7.2 cm x 5.8 cm with cavitary component Chest x-ray from 07/09/2023 did not show any mass No night sweats No personal history of tuberculosis, no recent travel history outside of [place], no known exposure to somebody with tuberculosis Goal QuantiFERON has been ordered Follow sputum culture -- Acute hypoxic respiratory failure with abnormal chest CT Patchy groundglass opacities appreciated bilaterally Respiratory BioFire negative for everything on 07/24/2024 Procalcitonin 0.68 Nasal MRSA negative --Active smoker Approximately 84-bhpc-vspb smoking history Currently smoking half a pack a day Plan: Chest x-ray from today still shows bilateral patchy opacities and dense opacity on the periphery of the left upper lobe I will add anaerobic coverage to the patient's regimen. Follow-up procalcitonin from today to see where it is trending The growth of the mass was significant in almost 13 months. The possibility of it being infection is still there but malignancy needs to be ruled out especially given the smoking history Continue with Hycodan as needed Continue with O2 supplementation to keep oxygen saturation between 90-92% For navigational bronchoscopy tomorrow on 07/28/2024. N.p.o. postmidnight. Hold all anticoagulation All questions and queries of the patient, patient's family which includes father and were answered in depth Please note the above document was generated using voice recognition software. It may contain grammatical, syntax or spelling errors.Any formal questions or concerns about the content, text or information contained within the body of this dictation should be directly addressed to the provider for clarification. Admission and Anticipated Discharge Date Admission Date: July 25, 2024 Subjective Patient seen and examined at bedside. No acute distress. Patient's and father was at bedside at the time of examination He did not have a good night sleep as they change his rooms Coughing has improved compared to when he came to the hospital but still has bouts of coughing for which she needs cough suppressant medication Denies any chest pain No abdominal pain, no nausea or vomiting Fair appetite Tmax 39.1 yesterday evening Patient was saturating 91-92% on 2 L nasal cannula Review of Systems 2 Review of Systems: All systems reviewed & are unremarkable except as noted in Subjective Physical Exam 2 Physical Exam: Constitutional: No acute distress HEENT: EOMI, PERRLA Respiratory system: Decreased air entry bilaterally, no wheeze, no rhonchi, positive crackles bilateral lower lobes CVS: S1-S2 positive, no murmurs or gallops, tachycardia Abdomen: Soft, nontender, nondistended, positive bowel sounds x4 Extremities: +2 pulses bilaterally radialis/ dorsalis pedis, no cyanosis, no edema Neuro: Awake alert oriented x3 Psych: Normal mood and affect G/U: No Avery Skin: no rashes, warm and dry Lymphatic: no cervical or axillary lymphadenopathy Results & Data Results & Data Vital Signs (Past 12 Hours) Vital Signs Temp Pulse Pulse Resp BP BP Pulse Ox 07/27/24 07:52 36.8 C 95 H 18 135/76 90 07/27/24 07:30 95 H 17 94 07/27/24 07:16 85 07/27/24 03:21 36.9 C 98 H 18 126/71 95 07/26/24 22:33 37.1 C 103 H 18 145/81 H 93 07/26/24 21:52 103 H 07/26/24 21:21 36.8 C 92 O2 Del Method O2 Flow Rate 07/27/24 07:52 Nasal Cannula 2 07/27/24 07:30 Nasal Cannula 2 07/27/24 07:16 07/27/24 03:21 Nasal Cannula 2 07/26/24 22:33 Nasal Cannula 2 07/26/24 21:52 07/26/24 21:21 Nasal Cannula 2 Laboratory Results 07/27/24 05:34 07/25/24 05:16 PG Care Time/CCT Total # of Minutes Spent Total Time Spent with Patient: Total time spent is greater than 50% in coordination of care (as documented) at patient's floor/unit and/or counseling patient: Coding Level of Care Code 10464 SUB INP/OBS CARE 3/50MIN Diagnoses Lung mass R91.8 Multifocal pneumonia J18.9 SOB (shortness of breath) R06.02 Acute respiratory failure with hypoxia J96.01
--- NOTE | 2024-07-27 09:10 | Hospitalist Progress Note ---
Date of Service July 27, 2024 Assessment & Plan (1) Pneumonia: Plan: This appears to be mostly atypical, his procalcitonin on admission was 0.68 which is just slightly elevated, on current regimen of ceftriaxone and azithromycin, he is leukocytosis is slightly improved today from initial of 21,000 down to 18,000, his cough is ongoing. I am a little concerned about this new hypoxemia that was found however looking at his chest x-ray, I feel that specially in the right upper lobe his infiltrate is getting better. Continue with airborne isolation, QuantiFERON test pending, bronchoscopy for tomorrow. (2) Lung mass: Plan: Left upper lobe, cavitary in appearance, it could be infectious with caseification in the middle or necrotic malignancy or TB. TB workup is pending, patient will undergo bronchoscopy on 07/28/2024. Patient denied having any travel outside [place], he has not been exposed with anyone recently with known history of TB. Plan Monitor WBC count, continue with empirical ceftriaxone and azithromycin, follow with the result of TB and for the bronchoscopy tomorrow. Admission and Anticipated Discharge Date Admission Date: July 25, 2024 Subjective Patient is a 54-year-old gentleman with nicotine dependence who was admitted to the hospital because of shortness of breath and cough, he does not have any prior medical condition although he has not been to a doctor for several years. He was found to have scattered predominantly right upper lobe groundglass changes along with leukocytosis of 20,000 and respiratory symptoms but not hypoxemia, patient was treated with IV antibiotic, also CT of the chest showed a left upper lobe cavitary lesion which was read and interpreted as possible new malignancy with necrotic center. Patient was seen by pulmonary and plan for bronchoscopy and biopsy on 07/28/2024. Patient was seen and examined, he is now on airborne isolation with TB testing pending, overnight apparently he became little hypoxic and was placed on oxygen, I checked his oxygen saturation on room air myself and it was up to 89%. His cough seems to be ongoing. I had a long conversation with patient and his at bedside and explained about the role of TB testing Physical Exam Physical Exam: VITALS: Reviewed. WEIGHT/BMI reviewed. GEN: Healthy appearing, well-developed, NAD. CV: RRR, no m/r/g. LUNGS: Diminished breath sounds on the left side but overall unchanged from yesterday. ABD: Soft, NT/ND, NBS, no masses or organomegaly. EXT: No clubbing, cyanosis, or edema. Results & Data Results & Data Vital Signs (Past 12 Hours) Vital Signs Temp Pulse Pulse Resp BP BP Pulse Ox 07/27/24 07:52 36.8 C 95 H 18 135/76 90 07/27/24 07:30 95 H 17 94 07/27/24 07:16 85 07/27/24 03:21 36.9 C 98 H 18 126/71 95 07/26/24 22:33 37.1 C 103 H 18 145/81 H 93 07/26/24 21:52 103 H 07/26/24 21:21 36.8 C 92 O2 Del Method O2 Flow Rate 07/27/24 07:52 Nasal Cannula 2 07/27/24 07:30 Nasal Cannula 2 07/27/24 07:16 07/27/24 03:21 Nasal Cannula 2 07/26/24 22:33 Nasal Cannula 2 07/26/24 21:52 07/26/24 21:21 Nasal Cannula 2 Laboratory Results Laboratory Results - last 24 hr 07/27/24 05:34 WBC 18.91 H RBC 4.01 L Hgb 12.2 L Hct 34.5 L MCV 86.0 MCH 30.4 MCHC 35.4 RDW Std Deviation 40.8 RDW Coeff of Carin 12.9 Plt Count 607 H MPV 9.6 Immature Gran % (Auto) 0.8 Neut % (Auto) 85.4 Lymph % (Auto) 6.2 Karnes % (Auto) 7.1 Eos % (Auto) 0.3 Baso % (Auto) 0.2 Neut # (Auto) 16.14 H Lymph # (Auto) 1.18 L Karnes # (Auto) 1.35 H Eos # (Auto) 0.05 Baso # (Auto) 0.03 Immature Gran # (Auto) 0.16 Diagnostic Findings Chest X-Ray 07/27/24 07:00 EXAM: XR chest 1V portable CLINICAL HISTORY: f/u tgb/jtf TECHNIQUE: An X-ray image of the chest is obtained in AP projection. COMPARISON: [id number]. CR /[id number].5.1.2 CT./OBX.5.1.2/OBX.5.1 FINDINGS: Unchanged left lung upper and middle zones large opacity/mass, laterally abutting the pleural margin. Interval worsening of the scattered bilateral lung opacities and infiltrates. No evident pleural effusion. Heart size and shape are normal. No mediastinal widening or masses. No hilar or mediastinal lymphadenopathy. The bony thorax appears intact without fractures or deformities. Soft tissues overlying the chest wall are unremarkable. IMPRESSION: 1. Unchanged left lung upper and middle zones large opacity/mass. 2. Interval worsening of the scattered bilateral lung opacities and infiltrates. Electronically signed by Leeann Ziegler 07-27-2024 08:07 AM Medications Administered Current Inpatient Medications Acetaminophen (Acetaminophen 325 Mg Tab) 650 mg PO Q6H PRN PRN Reason: Pain or Fever Stop: 08/24/24 01:38 Last Admin: 07/26/24 20:09 Dose: 650 mg Albuterol (Albut/Ipratrop 3mg/0.5mg Neb 3 Ml Vial) 3 ml NEB QIDR ELLIOT; Protocol Stop: 08/24/24 06:59 Last Admin: 07/27/24 07:30 Dose: 3 ml Albuterol (Albut/Ipratrop 3mg/0.5mg Neb 3 Ml Vial) 3 ml NEB Q4H PRN; Protocol PRN Reason: Shortness Of Breath Or Wheezing Stop: 08/24/24 01:38 Azithromycin (Azithromycin 250 Mg Tab) 250 mg PO HS [facility] Stop: 07/29/24 09:59 Last Admin: 07/26/24 20:10 Dose: 250 mg Hydrocodone Bit/Homatropine Methylb (Hydrocodone/Homatropine Syrup 5mg/1.5mg 5ml Udp) 5 ml PO Q4 PRN PRN Reason: Cough Stop: 08/08/24 14:05 Last Admin: 07/27/24 00:50 Dose: 5 ml Ceftriaxone Sodium (Rocephin) 2,000 mg in 50 mls @ 100 mls/hr IV Q24H ELLIOT Stop: 07/30/24 21:59 Last Infusion: 07/26/24 23:33 Dose: Infused Metronidazole (Metronidazole 500 Mg Tab) 500 mg PO Q8 ELLIOT; Protocol Stop: 08/01/24 08:59 Nitroglycerin (Nitroglycerin Sl 0.4 Mg/Tab Tab) 0.4 mg SL Q5M PRN PRN Reason: Chest Pain Stop: 08/24/24 01:38 Polyethylene Glycol (Polyethylene (Miralax) 17 Gm Pack) 17 gm PO DAILY PRN PRN Reason: Constipation Stop: 08/24/24 01:38 (1) Pneumonia Laterality: left Lung location: upper lobe of lung Pneumonia type: due to unspecified organism Qualified Code(s): J18.9 - Pneumonia, unspecified organism
[2024-07-27] MEDS: metroNIDAZOLE 500 MG TAB PO SCH (09:34)
[2024-07-27 11:42] LABS: Quantiferon NIL 0.03 IU/mL; Quantiferon TB Gold Plus NEGATIVE (NEGATIVE); Quantiferon TB1-NIL <0.00 IU/mL; Quantiferon TB2-NIL <0.00 IU/mL
[2024-07-27] MEDS ORDERED: VANCOMYCIN CONSULT ACTIVE PRN (12:42)
[2024-07-27 13:41] LABS: BUN Creatinine Ratio 9.9 (10-20); Calcium 8.9 mg/dl (8.6-10.3); Creatinine Clr Calc Pharmacy 108.6 ml/min; Potassium 3.6 mmol/L (3.5-5.1)
[2024-07-27] MEDS: CEFEPIME 2000MG 2,000 MG/20 ML SYR IV SCH (13:57)
[2024-07-27] MEDS: VANCOMYCIN HCL 1,500 MG in SODIUM CHLORIDE 0.9% 500 ML IV ONE (14:08)
--- NOTE | 2024-07-27 14:16 | Pharmacy Report ---
Pharmacy PK ABX Note - Date of Service July 27, 2024 - Assessment and Plan Assessment 54 year old M receiving vancomycin, cefepime, flagyl for potential pneumonia. Admitted with shortness of breath/cough. CT of chest with upper lobe cavitary lesion. Seen by pulmonary and plan for bronchoscopy/biopsy tomorrow. Previously on just rocephin/azithromycin, however still with leukocytosis this AM. Provider broadening antibiotics today due to continued symptoms. Per notes, patient is an active smoker. Plan Vancomycin * Loading dose: 1500 mg IV x 1 * Maintenance dose: 1500 mg IV every 12 hours * Regimen is predicted to achieve target AUC/ASHANTI of 400-600 mg/L.hr * Plan to collect random vancomycin level if plan is to continue >48 hours Pharmacy will continue to follow and will adjust dose/frequency as necessary. Thank you. Pharmacy has transitioned to AUC monitoring for vancomycin. AUC/ASHANTI is the preferred PK/PD target and is associated with decreased risk of nephrotoxicity compared to traditional trough targets.
[2024-07-27] MEDS: ALBUT/IPRATROP 3MG/0.5MG NEB 3 ML VIAL NEB PRN (23:33)
[2024-07-27] MEDS: ACETYLCYSTEINE 10% INHAL SOLN 4 ML **DISPENSED BY RESP. INH SCH ×2 (23:33→23:42)
[2024-07-28] MEDS: VANCOMYCIN HCL 1,500 MG in SODIUM CHLORIDE 0.9% 500 ML IV SCH (02:01)
--- NOTE | 2024-07-28 07:07 | Pulmonology Progress Note ---
Date of Service July 28, 2024 Assessment & Plan (1) Lung mass: (2) Multifocal pneumonia: (3) SOB (shortness of breath): (4) Acute respiratory failure with hypoxia: Plan CT chest 07/24/2024 personally reviewed: Diffuse groundglass opacities appreciated bilaterally upper and lower lobes Left upper lobe well-circumscribed 7.2 cm x 5.8 cm mass with central necrosis Left hilar lymphadenopathy -- Left upper lobe mass 7.2 cm x 5.8 cm with cavitary component Chest x-ray from 07/09/2023 did not show any mass No night sweats No personal history of tuberculosis, no recent travel history outside of [place], no known exposure to somebody with tuberculosis Gld QuantiFERON is negative Follow sputum culture -- Acute hypoxic respiratory failure with abnormal chest CT Patchy groundglass opacities appreciated bilaterally Respiratory BioFire negative for everything on 07/24/2024 Procalcitonin 0.68 Nasal MRSA negative --Active smoker Approximately [id number] smoking history Currently smoking half a pack a day Plan: Patient's gold QuantiFERON is negative, the probability of patient having tuberculosis is meniscal. The growth of the mass was significant in almost 13 months. The possibility of it being infection is still there but malignancy needs to be ruled out especially given the smoking history Continue with Hycodan as needed Continue with O2 supplementation to keep oxygen saturation between 90-92% For navigational bronchoscopy today Risk and benefit of the procedure explained to the patient in depth. Patient understands and wants to go ahead with the procedures Consent signed, witnessed and put in the chart Please note the above document was generated using voice recognition software. It may contain grammatical, syntax or spelling errors.Any formal questions or concerns about the content, text or information contained within the body of this dictation should be directly addressed to the provider for clarification. Admission and Anticipated Discharge Date Admission Date: July 25, 2024 Subjective Patient seen and examined at bedside. No acute distress, no adverse events overnight He was saturating 94-95% on 4 L nasal cannula. He is bringing up copious amount of phlegm. No hemoptysis Denied any chest pain No headache, no blurry vision Tmax 38.9 Review of Systems 2 Review of Systems: All systems reviewed & are unremarkable except as noted in Subjective Physical Exam 2 Physical Exam: Constitutional: No acute distress HEENT: EOMI, PERRLA Respiratory system: Decreased air entry bilaterally, no wheeze, no rhonchi, mild crackles bilateral lower lobes CVS: S1-S2 positive, no murmurs or gallops, tachycardia Abdomen: Soft, nontender, nondistended, positive bowel sounds x4 Extremities: +2 pulses bilaterally radialis/ dorsalis pedis, no cyanosis, no edema Neuro: Awake alert oriented x3 Psych: Normal mood and affect G/U: No Avery Skin: no rashes, warm and dry Lymphatic: no cervical or axillary lymphadenopathy Results & Data Results & Data Vital Signs (Past 12 Hours) Vital Signs Temp Pulse Pulse Resp BP Pulse Ox O2 Del Method 07/28/24 03:21 37.0 C 84 20 123/63 92 Nasal Cannula 07/27/24 23:36 97 H 22 94 Room Air 07/27/24 23:03 37.7 C H 104 H 18 142/82 H 91 Nasal Cannula 07/27/24 21:48 93 H 07/27/24 20:01 36.8 C 98 H 20 146/77 H 91 Nasal Cannula 07/27/24 19:30 Nasal Cannula O2 Flow Rate 07/28/24 03:21 4 07/27/24 23:36 07/27/24 23:03 4 07/27/24 21:48 07/27/24 20:01 3 07/27/24 19:30 3 Laboratory Results 07/27/24 05:34 07/27/24 10:46 PG Care Time/CCT Total # of Minutes Spent Total Time Spent with Patient: Total time spent is greater than 50% in coordination of care (as documented) at patient's floor/unit and/or counseling patient: Coding [place] [address] SUB INP/OBS CARE 2/35MIN Patient Type Established Diagnoses Lung mass R91.8 Multifocal pneumonia J18.9 SOB (shortness of breath) R06.02 Acute respiratory failure with hypoxia J96.01
--- NOTE | 2024-07-28 08:14 | XRay Report ---
EXAM: XR chest 1V portable CLINICAL HISTORY: RESPIRATORY FAILURE, PNEUMONIA. TECHNIQUE: An X-ray image of the chest is obtained in AP projection. COMPARISON: 07/27/2024. FINDINGS: Redemonstrated left lung upper and middle zones large opacity/mass, laterally abutting the pleural margin, with interval increase internal air lucency suggesting cavitation. Redemonstrated scattered bilateral lung opacities and infiltrates most appreciated at left lower zone with likely small cavitary lesions. Prominent left hilum, stable. No evident pleural effusion. Heart size and shape are normal. No mediastinal widening or masses. The bony thorax appears intact without fractures or deformities. Soft tissues overlying the chest wall are unremarkable. IMPRESSION: 1. Redemonstrated left lung upper and middle zones large opacity/mass, with interval increase internal air lucency suggesting cavitation and abscess formation. 2. Redemonstrated scattered bilateral lung opacities and infiltrates most appreciated at left lower zone with likely developing small cavitary lesions. 3. Associated neoplastic etiology can't be totally excluded, close follow-up is recommended. Electronically signed by Leeann Ziegler 07-28-2024 08:14 AM
[2024-07-28] MEDS ORDERED: ATROPINE SULFATE 0.1 MG/ML 10ML SYR IV PRN (08:27)
[2024-07-28] MEDS ORDERED: ONDANSETRON INJ 2 MG/ML 2 ML VIAL IV PRN (08:27)
[2024-07-28] MEDS ORDERED: ePHEDrine sulfate 50 MG/ML AMP IV PRN (08:27)
[2024-07-28 08:29] LABS: Basophils # (auto) 0.04 K/uL (0.00-0.20); Basophils % (auto) 0.2 %; Eosinophils # (auto) 0.14 K/uL (0.00-0.50); Eosinophils % (auto) 0.8 %; Hematocrit (blood only) 33.8 % (42.0-52.0); Hemoglobin 11.9 g/dl (14.0-18.0); Immature Granulocytes # (auto) 0.16 K/uL (0.01-0.20); Immature Granulocytes % (auto) 0.9 %; Lymphocytes # (auto) 1.08 K/uL (1.20-3.40); Lymphocytes % (auto) 6.3 %; Mean Corpuscular Hemoglobin 30.2 pg (25.0-34.0); Mean Corpuscular Hgb Conc 35.2 g/dL (32.0-36.0); Mean Corpuscular Volume 85.8 fL (80.0-100.0); Mean Platelet Volume 9.5 fL (9.4-12.4); Monocytes # (auto) 1.04 K/uL (0.11-0.59); Monocytes % (auto) 6.1 %; Neutrophils # (auto) 14.71 K/uL (1.40-6.50); Neutrophils % (auto) 85.7 %; Platelet Count 663 K/uL (130-400); RDW Coefficient of Variation 12.9 % (11.5-14.5); RDW Standard Deviation 40.2 fL (36.4-46.3); Red Blood Count 3.94 M/uL (4.70-6.10); White Blood Count 17.17 K/ul (4.8-10.8)
[2024-07-28 08:46] LABS: BUN Creatinine Ratio 12.5 (10-20); Calcium 8.7 mg/dl (8.6-10.3); Creatinine Clr Calc Pharmacy 107.1 ml/min; Potassium 3.6 mmol/L (3.5-5.1)
--- NOTE | 2024-07-28 09:10 | Anesthesiology Consultation ---
Date of Service July 28, 2024 Assessment & Plan Chart Review Chart Review: Acceptable Risk for Surgery and Patient NOT seen in Pre Admission Testing Consults Requested none ASA ASA2 Proposed Anesthesia Anesthesia Type: General Risk / Benefits Reviewed With: PT / POA / Parent / Guardian, Accepts Plan and Informed Consent Obtained History Surgery Operation Date: 07/28/24 09:20 Proposed Procedures p Robotic Navigational Bronchoscopy - [facility] Height/Weight Height: 5 ft 6 in Weight: 74.2 kg Allergies Allergy/AdvReac Type Severity Reaction Status Date / Time Bactrim Allergy . Unverified 12/21/09 21:32 Sulfa (Sulfonamide Allergy Verified 12/21/09 21:32 Antibiotics) Medications Home Medications Medication Instructions Recorded Confirmed Last Taken OXYCODONE/ACETAMINOPHEN 5MG/325MG 1 tab PO Q6HR PRN ##20 12/21/09 Unknown (PERCOCET 5MG/325MG) Active Medications Generic Name Dose Route Start Last Admin Trade Name Freq PRN Reason Stop Dose Admin Acetaminophen 650 mg 07/25/24 01:39 07/27/24 23:05 Acetaminophen 325 Mg Tab PO 08/24/24 01:38 650 mg Q6H PRN Administration Pain or Fever Acetylcysteine 4 ml 07/27/24 23:45 07/28/24 08:09 Acetylcysteine 10% Inhal Soln 4 Ml Dispensed By Resp. INH 08/26/24 23:44 Not Given QIDR ELLIOT Albuterol 3 ml 07/25/24 01:39 07/27/24 23:33 Albut/Ipratrop 3mg/0.5mg Neb 3 Ml Vial NEB 08/24/24 01:38 3 ml Q4H PRN Administration Shortness Of Breath Or Wheezing Protocol Hydrocodone Bit/Homatropine Methylb 5 ml 07/25/24 14:06 07/27/24 22:40 Hydrocodone/Homatropine Syrup 5mg/1.5mg 5ml Udp PO 08/08/24 14:05 5 ml Q4 PRN Administration Cough Cefepime HCl 2,000 mg in 20 mls @ 5 mls/min 07/27/24 13:00 07/28/24 01:56 Maxipime 2000mg IV 08/01/24 12:59 5 mls/min Q12H ELLIOT Administration Protocol Vancomycin HCl 1,500 mg/ 530 mls @ 200 mls/hr 07/28/24 02:00 07/28/24 04:40 Sodium Chloride IV 08/02/24 01:59 Infused Q12H ELLIOT Infusion Metronidazole 500 mg 07/27/24 09:00 07/28/24 06:25 Metronidazole 500 Mg Tab PO 08/01/24 08:59 500 mg Q8 ELLIOT Administration Protocol NPO Date Last Intake of Fluids: 07/28/24 Time Last Intake of Fluids: 06:30 Last Intake of Fluids Comment: sip with Flagyl Date Last Intake of Solids: 07/27/24 Time Last Intake of Solids: 18:00 Past Medical History Medical History Bronchitis Exercise / Class Metabolic Activity II 4-5 Yardwork/Stairs/Walk up hill Past Anesthesia History No Hx of Anesthesia Complications and No Family Hx of Anesthesia Complications History of PONV No Hx of PONV and No Hx of Motion Sickness Social History Smoking Status: Current every day smoker Hx Alcohol Use: Yes alcohol intake frequency: a few times a month Hx Substance Use: No Review of Systems ROS Unobtainable: All systems reviewed & are unremarkable except as noted in HPI & below Physical Exam Vital Signs Last Vital Signs Temp 36.7 C 07/28/24 08:02 Pulse 93 H 07/28/24 08:02 Resp 18 07/28/24 08:02 BP 132/70 07/28/24 08:02 Pulse Ox 97 07/28/24 08:02 O2 Del Method Nasal Cannula 07/28/24 08:02 O2 Flow Rate 4 07/28/24 08:02 ENMT Mouth: + poor dentition; no TMJ abnormality Thyromental Distance: < 3.5 Finger Breadths Mallampati Class: II Mouth / Teeth: 2 1. Missing 2. Missing Neck normal visual inspection and trachea midline; neck extension not limited Respiratory normal respiratory effort Auscultation: lungs clear to auscultation bilaterally Cardiovascular Rate/Rhythm: regular rate and regular rhythm Heart Sounds: no murmur Musculoskeletal Spine: normal cervical ROM Extremities: full ROM of extremities Neurologic moves all extremities Psychiatric Orientation: alert and oriented x 3 Testing Laboratory Results 07/28/24 07:40 07/28/24 07:40 PT 10.9 Seconds (9.0-12.0) 07/24/24 21:45 INR 1.0 (0.9-1.1) 07/24/24 21:45 APTT 28 Seconds (21-31) 07/24/24 21:45 07/27/24 06:04 Acid Fast Bacilli Smear - Final Sputum, Expectorated 07/27/24 06:04 Gram Stain - Final Sputum, Expectorated Electrocardiogram Date: 07/27/24 Sinus tachycardia with occasional Premature ventricular complexes Otherwise normal ECG When compared with ECG of 26-Jul-2024 05:55, Premature ventricular complexes are now Present Confirmed by Jeovanny Stanford ([id number]) on 07/27/2024 8:30:23 AM
[2024-07-28] MEDS ORDERED: ONDANSETRON INJ 2 MG/ML 2 ML VIAL ONE (09:26)
[2024-07-28] MEDS ORDERED: MIDAZOLAM HCL 1 MG/ML 2ML VIAL ONE (09:26)
[2024-07-28] MEDS ORDERED: LIDOCAINE 2% 2 ML VIAL/AMP(20MG/ML) INFIL ONE (09:26)
[2024-07-28] MEDS ORDERED: ROCURONIUM BROMIDE 10 MG/ML 5 ML VIAL IV ONE ×2 (09:26→10:32)
[2024-07-28] MEDS ORDERED: fentaNYL citrate PF 100 MCG/2 ML VIAL ONE (09:26)
[2024-07-28] MEDS ORDERED: PROPOFOL IV EMULSION 10 MG/ML 20 ML VIAL IV ONE ×4 (09:26→11:17)
[2024-07-28] MEDS ORDERED: DEXAMETHASONE SOD INJ 4 MG/ML VIAL ONE ×2 (09:26→09:48)
[2024-07-28] MEDS ORDERED: NEOSTIGMINE METHYLSULFATE 1 MG/ML 10ML VIAL ONE (10:56)
[2024-07-28] MEDS ORDERED: GLYCOPYRROLATE 0.2 MG/ML VIAL ONE (10:56)
--- NOTE | 2024-07-28 11:44 | Procedure Note ---
Procedure Note: Bronchoscopy Procedure PREOPERATIVE DIAGNOSIS: Left upper lobe mass with mediastinal lymphadenopathy POSTOPERATIVE DIAGNOSIS: Left upper lobe mass with mediastinal lymphadenopathy, highly suspicious cells with acute inflammation PROCEDURE PERFORMED: Flexible fiberoptic bronchoscopy with bronchoalveolar lavage, transbronchial biopsies, navigational robotic bronc and EBUS COMPLICATIONS: None. INDICATION: Rule out malignancy PROCEDURE: After obtaining an informed consent, the patient was brought to the OR. The patient had appropriate oxygen, blood pressure, heart rate, and respiratory rate monitoring applied and monitored continuously throughout the procedure. Supplemental oxygen via nasal cannula as per nursing records was applied to the nasopharynx with adequate saturations achieved. Topical anesthesia with nebulized 1% lidocaine was achieved. Sedation was managed by anesthesia, please refer to their notes Bronchoscope was advanced through ETT As soon as I passed through the ET tube, dark grayish-yellow phlegm was appreciated in the trachea which was suctioned out. The trachea appeared normal.The bronchoscope was then advanced through the lorraine, which was sharp. The scope was then advanced into the right main stem and each segment, subsegement in the right upper lobe, right middle lobe and right lower lobe were visualized. There minimal amount of secretions on the right side which was suctioned out. There were no other findings including evidence of mass, anatomic distortions, or hemorrhage. The bronchoscope was subsequently withdrawn and advanced into the left mainstem. At the entry of the left upper lobe anterior segment dark grayish-yellow secretions were appreciated which were suctioned out following that again, each segment and subsegment was well visualized. No specific masses or other lesions were identified throughout the tracheobronchial tree on the left. Flexible bronchoscope was withdrawn and galaxy robotic bronc was introduced The bronchoscope was navigated with the help of the software Under the guidance of fluoroscopy as well as TiLT multiple needle biopsies were taken. It showed acute inflammation and some atypical cells This was followed by total 9 transbronchial forceps biopsy, it also showed acute inflammation, necrosis as well as atypical cells Minimal hemorrhage was identified and suctioned clear without difficulty. Galaxy system was discontinued and EBUS was introduced Station 4R, 4L, 10L were visualized 4R: 2 passes with multiple sweeps, adequate 4L: 3 passes with multiple sweeps, adequate 10L: 5 passes with multiple sweeps, highly suspicious EBUS was withdrawn and flexible bronchoscope was reintroduced The bronchoscope was then wedged in the left upper lobe anterior segment and bronchoalveolar lavage samples were obtained. 120 ml of saline was instilled and 45 ml of fluid was aspirated back.The bronchoscope was withdrawn and the area was suctioned clear. Minimal hemorrhage was identified and suctioned clear without difficulty. The bronchoscope was then withdrawn to the mainstem. The area was suctioned clear. The bronchoscope was then withdrawn. The patient tolerated the procedure well without evidence of desaturation or complications. Bronchoalveolar lavage samples as well as FNA were sent for cell count, Gram stain and bacterial culture, AFB culture and smear, fungal culture and smear, histoplasma, coccidioidal cryptococcus and cytology. Transbronchial biopsies were sent for pathology. Recommendations: Follow-up micro, cytology and pathology Follow-up chest x-ray Please note the above document was generated using voice recognition software. It may contain grammatical, syntax or spelling errors.Any formal questions or concerns about the content, text or information contained within the body of this dictation should be directly addressed to the provider for clarification. [facility] Procedure Codes (Charges) Pulmonary/Thoracic Procedure 1: Pulmonary and Thoracic: 59549 Navigational Bronchoscopy Procedure 2: Pulmonary and Thoracic: 10800 Dx bronchoscopy/BAL Procedure 3: Pulmonary and Thoracic: 48529 Bronchoscopy w/ transbronchial lung bx Procedure 4: Pulmonary and Thoracic: 65241 Bronchoscopy w/ needle bx Procedure 5: Pulmonary and Thoracic: 29124 Bronchoscopy, w/EBUS, 3+ mediastinal
[2024-07-28] MEDS: fentaNYL citrate PF 100 MCG/2 ML VIAL IV PRN (11:54)
--- NOTE | 2024-07-28 12:03 | Anesthesiology Progress Note ---
Date of Service July 28, 2024 Anesthesia Post Procedure Vital Signs Vital Signs: Temp Pulse Pulse Resp BP Pulse Ox O2 Del Method 07/28/24 10:06 Nasal Cannula 07/28/24 08:02 36.7 C 93 H 18 132/70 97 Nasal Cannula 07/28/24 07:31 37.0 C 71 18 130/73 93 Nasal Cannula 07/28/24 06:21 78 07/28/24 03:21 37.0 C 84 20 123/63 92 Nasal Cannula 07/27/24 23:36 97 H 22 94 Room Air 07/27/24 23:03 37.7 C H 104 H 18 142/82 H 91 Nasal Cannula 07/27/24 21:48 93 H 07/27/24 20:01 36.8 C 98 H 20 146/77 H 91 Nasal Cannula 07/27/24 19:30 Nasal Cannula 07/27/24 15:40 36.9 C 90 18 133/79 93 Nasal Cannula 07/27/24 15:35 103 H 07/27/24 12:28 38.9 C H 102 H 19 136/75 91 Nasal Cannula O2 Flow Rate 07/28/24 10:06 3 07/28/24 08:02 4 07/28/24 07:31 4 07/28/24 06:21 07/28/24 03:21 4 07/27/24 23:36 07/27/24 23:03 4 07/27/24 21:48 07/27/24 20:01 3 07/27/24 19:30 3 07/27/24 15:40 3 07/27/24 15:35 07/27/24 12:28 4 Transfer of Care Handoff Completed per policy Notes Mental Status: alert / awake / arousable Patient Amnestic to Procedure: Yes Nausea / Vomiting: adequately controlled Pain: adequately controlled Airway Patency, RR, SpO2: stable & adequate BP & HR: stable & adequate Hydration State: stable & adequate Anesthetic Complications: no major complications apparent and Pt Satisfied with anesthetic care
--- NOTE | 2024-07-28 12:15 | XRay Report ---
XR chest 1V portable CLINICAL HISTORY: Post Bronchoscopy COMPARISON STUDY: 07/28/2024 FINDINGS: Heart size and pulmonary vasculature are normal. Multiple bilateral pulmonary nodules again seen, largest a partially cavitary mass at the left mid lung laterally. No pleural effusion or pneum othorax. IMPRESSION: No pneumothorax seen. ACT 112: Negative or not required by law. Electronically signed by: Jose Pinto M.D. 07/28/2024 12:13 PM
--- NOTE | 2024-07-28 13:15 | Hospitalist Progress Note ---
Date of Service July 28, 2024 Assessment & Plan (1) Pneumonia: Plan: This could be still infectious versus malignant although the findings on bronchoscopy is more of necrotic and infectious etiology. Will transition to Augmentin, I have already asked infectious disease to suggest if there is any choice of antibiotic recommended, length of treatment will be 6 weeks. Patient will have repeat CT of the chest 2 months after completion of the antibiotic with follow-up by pulmonary as outpatient. In regard to his oxygen requirement, tomorrow when we are planning to discharge him, we will do a 2 step test to figure out his oxygen need (2) Lung mass: Plan: Status post bronchoscopy and EBUS, follow with results. Plan Await recommendation on choice of antibiotic by infectious disease, check two- step home oxygen testing tomorrow. Possible discharge home tomorrow. Admission and Anticipated Discharge Date Admission Date: July 25, 2024 Subjective Patient is a 54-year-old gentleman with nicotine dependence who was admitted to the hospital because of shortness of breath and cough, he does not have any prior medical condition although he has not been to a doctor for several years. He was found to have scattered predominantly right upper lobe groundglass changes along with leukocytosis of 20,000 and respiratory symptoms but not hypoxemia, patient was treated with IV antibiotic, also CT of the chest showed a left upper lobe cavitary lesion which was read and interpreted as possible new malignancy with necrotic center. Patient was seen by pulmonary and plan for bronchoscopy and biopsy on 07/28/2024. This was done today, based on my conversation with pulmonary, during the procedure, lots of necrotic tissue was encountered. The plan at this time is to continue with oral antibiotic for the diagnosis of lung abscess. Patient was seen and examined and information was discussed, we will involve infectious disease for antibiotic choice recommendation, eventually plan is for patient to discharge home likely tomorrow with 6 weeks of oral antibiotic treatment, CT of the chest to be repeated 2 months after completion of the antibiotic treatment and to be seen by pulmonary for follow-up. Depending on how much of this mass or collection remains, further biopsy might be needed. If this has completely resolved by then then we can retrospectively conclude that this was all infectious. Case was discussed with infection control, patient will be remaining in isolation even after discharge until 6 weeks or anytime that his sputum culture resulted. Department of Health will follow-up with him as outpatient. Physical Exam Physical Exam: VITALS: Reviewed. WEIGHT/BMI reviewed. GEN: Healthy appearing, well-developed, NAD. On oxygen CV: RRR, no m/r/g. LUNGS: Diminished breath sounds on the left side but overall unchanged from yesterday. EXT: No clubbing, cyanosis, or edema. Results & Data Results & Data Vital Signs (Past 12 Hours) Vital Signs Temp Pulse Pulse Pulse Resp BP Pulse Ox 07/28/24 13:04 36.7 C 82 20 119/72 91 07/28/24 12:48 07/28/24 12:25 36.6 C 85 19 119/67 92 07/28/24 12:15 87 21 119/64 92 07/28/24 12:05 86 21 124/71 92 07/28/24 11:55 87 18 113/60 95 07/28/24 11:49 36.9 C 83 16 101/80 95 07/28/24 10:06 07/28/24 08:02 36.7 C 93 H 18 132/70 97 07/28/24 07:31 37.0 C 71 18 130/73 93 07/28/24 06:21 78 07/28/24 03:21 37.0 C 84 20 123/63 92 O2 Del Method O2 Flow Rate 07/28/24 13:04 Nasal Cannula 4 07/28/24 12:48 Mechanical Vent 07/28/24 12:25 Nasal Cannula 4 07/28/24 12:15 Nasal Cannula 4 07/28/24 12:05 Nasal Cannula 4 07/28/24 11:55 Oxymask 6 07/28/24 11:49 Oxymask 6 07/28/24 10:06 Nasal Cannula 3 07/28/24 08:02 Nasal Cannula 4 07/28/24 07:31 Nasal Cannula 4 07/28/24 06:21 07/28/24 03:21 Nasal Cannula 4 Laboratory Results Laboratory Results - last 24 hr 07/27/24 07/28/24 07/28/24 10:46 07:40 Unknown WBC 17.17 H RBC 3.94 L Hgb 11.9 L Hct 33.8 L MCV 85.8 MCH 30.2 MCHC 35.2 RDW Std Deviation 40.2 RDW Coeff of Carin 12.9 Plt Count 663 H MPV 9.5 Immature Gran % (Auto) 0.9 Neut % (Auto) 85.7 Lymph % (Auto) 6.3 [place] % (Auto) 6.1 Eos % (Auto) 0.8 Baso % (Auto) 0.2 Neut # (Auto) 14.71 H Lymph # (Auto) 1.08 L [place] # (Auto) 1.04 H Eos # (Auto) 0.14 Baso # (Auto) 0.04 Immature Gran # (Auto) 0.16 Sodium 135 L 139 Potassium 3.6 3.6 Chloride 99 104 Carbon Dioxide 26 26 Anion Gap 10 9 BUN 7 9 Creatinine 0.71 0.72 Est Cr Clr Drug Dosing 108.6 107.1 eGFR 109.71 109.24 BUN/Creatinine Ratio 9.9 L 12.5 Glucose 103 H 95 Calcium 8.9 8.7 Fluid Neutrophils % Pending Fluid Lymphocytes % Pending Fluid Comment Coccidioid immitis DNA Pending Histo/Blasto PCR Result Pending Pneumocyst jirovecii PCR Pending Diagnostic Findings Chest X-Ray 07/28/24 07:00 EXAM: XR chest 1V portable CLINICAL HISTORY: RESPIRATORY FAILURE, PNEUMONIA. TECHNIQUE: An X-ray image of the chest is obtained in AP projection. COMPARISON: 07/27/2024. FINDINGS: Redemonstrated left lung upper and middle zones large opacity/mass, laterally abutting the pleural margin, with interval increase internal air lucency suggesting cavitation. Redemonstrated scattered bilateral lung opacities and infiltrates most appreciated at left lower zone with likely small cavitary lesions. Prominent left hilum, stable. No evident pleural effusion. Heart size and shape are normal. No mediastinal widening or masses. The bony thorax appears intact without fractures or deformities. Soft tissues overlying the chest wall are unremarkable. IMPRESSION: 1. Redemonstrated left lung upper and middle zones large opacity/mass, with interval increase internal air lucency suggesting cavitation and abscess formation. 2. Redemonstrated scattered bilateral lung opacities and infiltrates most appreciated at left lower zone with likely developing small cavitary lesions. 3. Associated neoplastic etiology can't be totally excluded, close follow-up is recommended. Electronically signed by Leeann Ziegler 07-28-2024 08:14 AM Chest X-Ray 07/28/24 11:35 XR chest 1V portable CLINICAL HISTORY: Post Bronchoscopy COMPARISON STUDY: 07/28/2024 FINDINGS: Heart size and pulmonary vasculature are normal. Multiple bilateral pulmonary nodules again seen, largest a partially cavitary mass at the left mid lung laterally. No pleural effusion or pneumothorax. IMPRESSION: No pneumothorax seen. ACT 112: Negative or not required by law. Electronically signed by: Jose Pinto M.D. 07/28/2024 12:13 PM Medications Administered Current Inpatient Medications Acetaminophen (Acetaminophen 325 Mg Tab) 650 mg PO Q6H PRN PRN Reason: Pain or Fever Stop: 08/24/24 01:38 Last Admin: 07/27/24 23:05 Dose: 650 mg Acetylcysteine (Acetylcysteine 10% Inhal Soln 4 Ml Dispensed By Resp.) 3 ml INH BIDR ELLIOT Stop: 08/27/24 18:59 Albuterol (Albut/Ipratrop 3mg/0.5mg Neb 3 Ml Vial) 3 ml NEB Q4H PRN; Protocol PRN Reason: Shortness Of Breath Or Wheezing Stop: 08/24/24 01:38 Last Admin: 07/27/24 23:33 Dose: 3 ml Atropine Sulfate (Atropine Sulfate 0.1 Mg/Ml 10ml Syr) 0.5 mg IV Q1M PRN PRN Reason: PACU Use-HR<40 &/or Bradycardi Stop: 07/28/24 16:29 Ephedrine Sulfate (Ephedrine Sulfate 50 Mg/Ml Amp) 5 mg IV Q5M PRN PRN Reason: PACU Use Only-SBP<90 mmHg Stop: 07/28/24 16:29 Fentanyl Citrate (Fentanyl Citrate Pf 100 Mcg/2 Ml Vial) 25 mcg IV Q5M PRN PRN Reason: PACU Use Only-Pain Stop: 07/28/24 16:29 Last Admin: 07/28/24 11:59 Dose: 25 mcg Hydrocodone Bit/Homatropine Methylb (Hydrocodone/Homatropine Syrup 5mg/1.5mg 5ml Udp) 5 ml PO Q4 PRN PRN Reason: Cough Stop: 08/08/24 14:05 Last Admin: 07/27/24 22:40 Dose: 5 ml Cefepime HCl (Maxipime 2000mg) 2,000 mg in 20 mls @ 5 mls/min IV Q12H ELLIOT; Protocol Stop: 08/01/24 12:59 Last Admin: 07/28/24 01:56 Dose: 5 mls/min Vancomycin HCl 1,500 mg/ (Sodium Chloride) 530 mls @ 200 mls/hr IV Q12H ELLIOT Stop: 08/02/24 01:59 Last Infusion: 07/28/24 04:40 Dose: Infused Metronidazole (Metronidazole 500 Mg Tab) 500 mg PO Q8 ELLIOT; Protocol Stop: 08/01/24 08:59 Last Admin: 07/28/24 06:25 Dose: 500 mg Miscellaneous Information (Vancomycin Consult Active) 1 each N/A UD PRN PRN Reason: Consult Stop: 08/26/24 12:41 Nitroglycerin (Nitroglycerin Sl 0.4 Mg/Tab Tab) 0.4 mg SL Q5M PRN PRN Reason: Chest Pain Stop: 08/24/24 01:38 Ondansetron HCl (Ondansetron Inj 2 Mg/Ml 2 Ml Vial) 4 mg IV ONCE PRN PRN Reason: PACU Use Only-Nausea/Vomiting Stop: 07/28/24 16:29 Polyethylene Glycol (Polyethylene (Miralax) 17 Gm Pack) 17 gm PO DAILY PRN PRN Reason: Constipation Stop: 08/24/24 01:38 (1) Pneumonia Laterality: left Lung location: upper lobe of lung Pneumonia type: due to unspecified organism Qualified Code(s): J18.9 - Pneumonia, unspecified organism
[2024-07-28] MEDS: AMOXICILLIN/CLAVULANATE 875 MG TAB PO SCH (15:06)
[2024-07-28 15:48] LABS: Fluid Mono/Macrophage 35 %; Lymphocyte Body Fluid Man 1 %; Neutrophil Body Fluid Man 64 %
[2024-07-28] MEDS: ACETYLCYSTEINE 10% INHAL SOLN 4 ML **DISPENSED BY RESP. INH SCH (19:00)
[2024-07-29 03:34] VITALS: TEMP 97.9
[2024-07-29 07:50] VITALS: RESP 18
--- NOTE | 2024-07-29 08:39 | Pulmonology Progress Note ---
Date of Service July 29, 2024 Assessment & Plan (1) Lung mass: (2) Multifocal pneumonia: (3) SOB (shortness of breath): (4) Acute respiratory failure with hypoxia: Plan CT chest 07/24/2024 personally reviewed: Diffuse groundglass opacities appreciated bilaterally upper and lower lobes Left upper lobe well-circumscribed 7.2 cm x 5.8 cm mass with central necrosis Left hilar lymphadenopathy -- Left upper lobe mass 7.2 cm x 5.8 cm with cavitary component Chest x-ray from 07/09/2023 did not show any mass No night sweats No personal history of tuberculosis, no recent travel history outside of [place], no known exposure to somebody with tuberculosis Gold QuantiFERON is negative Follow sputum culture S/p bronchoscopy 07/28/2024: Highly suspicious cells with acute inflammation/necrosis Follow-up final pathology and cytology -- Acute hypoxic respiratory failure with abnormal chest CT Patchy groundglass opacities appreciated bilaterally Respiratory BioFire negative for everything on 07/24/2024 Procalcitonin 0.68 Nasal MRSA negative --Active smoker Approximately 30-[id number]-hltr smoking history Currently smoking half a pack a day Plan: Patient's gold QuantiFERON is negative, the probability of patient having tuberculosis is meniscal. The growth of the mass was significant in almost 13 months. The possibility of it being infection is still there but malignancy needs to be ruled out especially given the smoking history S/p bronchoscopy 07/28/2024: Highly suspicious cells with acute inflammation/necrosis Follow-up final pathology and cytology It will be very hard to differentiate between atypical cells because of active infection versus infection over underlying malignancy. Hopefully pathologist will be able to differentiate. In the interim I would highly recommend to give the patient at least 4-6 weeks of antibiotics. 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 Case was discussed with primary team Please note the above document was generated using voice recognition software. It may contain grammatical, syntax or spelling errors.Any formal questions or concerns about the content, text or information contained within the body of this dictation should be directly addressed to the provider for clarification. Admission and Anticipated Discharge Date Admission Date: July 25, 2024 Subjective Patient seen and examined at bedside. No acute distress, no adverse events overnight He was saturating 92 over 93% on room air Still complaining of cough and bringing up dark brownish phlegm. Denies any chest pain No headache, no blurry vision Fair appetite. Review of Systems 2 Review of Systems: All systems reviewed & are unremarkable except as noted in Subjective Physical Exam 2 Physical Exam: Constitutional: No acute distress HEENT: EOMI, PERRLA Respiratory system: Decreased air entry bilaterally, no wheeze, no rhonchi, minimal crackles bilaterally CVS: S1-S2 positive, no murmurs or gallops, tachycardia Abdomen: Soft, nontender, nondistended, positive bowel sounds x4 Extremities: +2 pulses bilaterally radialis/ dorsalis pedis, no cyanosis, no edema Neuro: Awake alert oriented x3 Psych: Normal mood and affect G/U: No Avery Skin: no rashes, warm and dry Lymphatic: no cervical or axillary lymphadenopathy Results & Data Results & Data Vital Signs (Past 12 Hours) Vital Signs Temp Pulse Pulse Pulse Resp BP Pulse Ox 07/29/24 07:55 81 18 93 07/29/24 07:49 36.6 C 78 18 118/60 93 07/29/24 07:00 75 07/29/24 03:33 36.6 C 82 20 128/77 93 07/28/24 23:15 37.2 C 82 18 124/74 94 07/28/24 21:56 88 O2 Del Method O2 Flow Rate 07/29/24 07:55 Nasal Cannula 4 07/29/24 07:49 Nasal Cannula 4 07/29/24 07:00 07/29/24 03:33 Nasal Cannula 4 07/28/24 23:15 Nasal Cannula 3.5 07/28/24 21:56 Laboratory Results 07/28/24 07:40 PG Care Time/CCT Total # of Minutes Spent Total Time Spent with Patient: Total time spent is greater than 50% in coordination of care (as documented) at patient's floor/unit and/or counseling patient: Coding Level of Care Code 09931 SUB INP/OBS CARE 2/35MIN Diagnoses Lung mass R91.8 Multifocal pneumonia J18.9 SOB (shortness of breath) R06.02 Acute respiratory failure with hypoxia J96.01
[2024-07-29 08:53] LABS: Creatinine Clr Calc Pharmacy 113.4 ml/min
--- NOTE | 2024-07-29 12:04 | Discharge Summary ---
Discharge Summary Date of Service July 29, 2024 Principal Dx & Hospital Course #1 = Principal Diagnosis (1) Pneumonia: (2) Lung mass: (3) Acute hypoxemic respiratory failure: Notes For Next Care Provider Medication Changes From Visit Augmentin 1 g twice daily for 6 weeks Albuterol MDI to be used as needed every 6 hours 2 puffs as needed Admission HPI Per Admitting Provider Patient is a 54-year-old gentleman with nicotine dependence who was admitted to the hospital because of shortness of breath and cough, he does not have any prior medical condition although he has not been to a doctor for several years. He was found to have scattered predominantly right upper lobe groundglass changes along with leukocytosis of 20,000 and respiratory symptoms but not hypoxemia, patient was treated with IV antibiotic, also CT of the chest showed a left upper lobe cavitary lesion which was read and interpreted as possible new malignancy with necrotic center. Patient was seen by pulmonary and plan for bronchoscopy and biopsy on 07/28/2024. This was done today, based on my conversation with pulmonary, during the procedure, lots of necrotic tissue was encountered. After the procedure, case was discussed with pulmonary, while QuantiFERON was negative, sputum culture is being cultured for ruling out TB this will be followed up by Department of Health as outpatient. Patient was seen and examined today, I discussed the case over the phone with Dr. Rodriguez and we decided to keep the patient on Augmentin for 6 weeks. Per recommendation by pulmonary who are going to see the patient in follow-up as well, we are going to complete treatment with follow-up CT of the chest afterwards to determine if patient needs additional workup. This morning I asked respiratory therapy to do a 2 step oxygen testing and patient was found to be independent and not requiring any oxygen. Patient will be discharged home on 6 weeks of Augmentin 1 g twice daily and albuterol MDI to be used as needed with follow-up by pulmonary as outpatient. Updated Medication List Medication Instructions Recorded Confirmed Type OXYCODONE/ACETAMINOPHEN 5MG/325MG 1 tab PO Q6HR PRN ##20 12/21/09 Rx (PERCOCET 5MG/325MG) albuterol sulfate 90 mcg/actuation 2 inh inhalation Q6H PRN shortness 07/29/24 Rx breath activated powder inhaler of breath or wheezing #1 ea amoxicillin 875 mg-potassium 1 tab PO Q12H 6 weeks #84 tabs 01/09/25 Rx clavulanate 125 mg tablet Hospital Stay Data Consultations 07/24/24 23:23 ED Decision to Admit Stat 07/24/24 23:29 ED Decision to Admit Stat 07/25/24 08:00 Consult Pulmonology Routine 07/29/24 11:30 Consult Infectious Diseases Stat Procedures Performed Operation Date: 07/28/24 09:20 Actual Procedures p Robotic Assisted Navigational Bronchoscopy, Transbronchial Needle Aspiration, Transbronchial iopsy with use of Fluoroscopy,(Not Applicable) - Josué Tavera MD, [facility] s Endobronchial Ultrasound, Bronchial Alveolar Lavage(Not Applicable) - Josué Tavera MD, [facility] Diagnostic Imagining Performed 07/24/24 22:19 CT angio chest PE protocol Stat 07/28/24 06:00 FL bronchoscopy Routine Pending Results Patient Have Any Pending Studies at Discharge: No Discharge Instructions Given to Patient (Per Discharging Provider) Complete 6 weeks of antibiotic with Augmentin 1 g twice daily Follow-up with carbonizer tester Repeat CT of the chest 2 months after completion of antibiotic treatment Total Time Total Time Spent Total Time Spent (In Minutes): More than 35-minute
[2024-07-29 12:08] VITALS: BP 135/79; PULSE 81; O2SAT 93
== END 2024-07-29 13:47 | disposition home or self-care (01) | DRG 166 ==
LOC: ED 21:19 → 2N 07-25 00:24 → 2W 07-27 00:50